=== PATIENT | female | born 1975 | race Caucasian/White ===

== ENCOUNTER 2024-01-12 13:54 | Inpatient (IN) | payer OTHER, SELFPAY ==
--- NOTE | ~2024-01-12 | CT_ITS ---
EXAMINATION: CT ABDOMEN AND PELVIS WITHOUT CONTRAST CLINICAL INFORMATION: Right flank pain. COMPARISON: None available. TECHNIQUE: Multidetector volumetric imaging was performed from the superior aspect of the liver through the pubic symphysis. Sagittal and coronal reformatted images were obtained on the technologist's workstation. This CT examination was performed using dose optimization techniques as appropriate, variously including the following: *Automated exposure control *Adjustment of mA and/or kV according to patient size (this includes techniques or standardized protocols for targeted exams where dose is matched to indication/reason for exam; i.e. extremities or head) *Use of iterative reconstruction technique DLP: 861 mGy-cm FINDINGS: LUNG BASES: The visualized lung bases are unremarkable. LIVER, GALLBLADDER, AND BILIARY TREE: Liver is borderline enlarged, measuring 20.5 cm craniocaudal. Normal contour. No focal lesions. Normal attenuation. There is a 2 cm peripherally calcified gallstone in the gallbladder with with minimal adjacent pericholecystic fat stranding. No wall thickening. No biliary ductal dilatation. PANCREAS: Unremarkable. SPLEEN: Unremarkable. ADRENAL GLANDS: Unremarkable. KIDNEYS AND URETERS: The kidneys are normal in size, shape, and attenuation. No hydronephrosis, hydroureter, or calculi seen. No perinephric stranding. BLADDER: Unremarkable. GASTROINTESTINAL TRACT: Stomach, small bowel, and colon are normal in caliber. No bowel wall thickening or surrounding inflammatory changes. Appendix is normal. No intraperitoneal free fluid or free air. ABDOMINAL WALL: No significant hernia is appreciated. LYMPH NODES: Normal. VASCULAR: Unremarkable. PELVIC VISCERA: Retroverted uterus. No adnexal lesions. OSSEOUS STRUCTURES: Mild facet arthropathy in the lower lumbar spine. No fracture or malalignment. Mild degenerative spondylosis in the lower thoracic spine. Mild osteoarthritis in both hips. CT/CT abdomen pelvis wo IV con IMPRESSION: 1. Cholelithiasis with mild pericholecystic fat stranding but with no apparent wall thickening. These findings are indeterminant for cholecystitis, particularly in the absence of more supportive findings of cholecystitis on the recent ultrasound. If there is concern for cholecystitis, consider correlation with a HIDA scan. 2. No evidence of nephrolithiasis or obstructive uropathy. 3. Borderline hepatomegaly. Fleischner guidelines were followed. Electronically signed by: Vincent Blake MD 01/12/2024 06:55 PM [facility]
--- NOTE | ~2024-01-12 | US_ITS ---
EXAMINATION: US ABDOMEN LIMITED CLINICAL INFORMATION: Right upper quadrant pain. COMPARISON: None available. TECHNIQUE: Real-time imaging of the right upper quadrant abdominal viscera. FINDINGS: PANCREAS: Normal. LIVER: Normal. The liver is normal in size and echotexture, noting a Winter's configuration. The liver contour is normal. No focal hepatic lesion. There is no intrahepatic biliary duct dilatation. GALLBLADDER: A 26 x 22 mm shadowing calculus is evident within the gallbladder. No wall thickening, Sharp's sign or pericholecystic fluid is evident. COMMON BILE DUCT: Normal in caliber measuring 0.5 cm in diameter. RIGHT KIDNEY: Normal. No hydronephrosis. There is a 5 mm echogenic focus in the upper pole, without definite shadowing.. The kidney measures 11.5 cm in maximum dimension. FREE FLUID: None. US/US abdomen limited IMPRESSION: 1. Cholelithiasis. 2. Question right renal upper pole calculus versus sonographic interface. If there is clinical concern of nephrolithiasis, this would be better assessed by a noncontrast CT. Electronically signed by: Felipe Zamudio MD 01/12/2024 04:15 PM EST
--- NOTE | 2024-01-12 13:57 | ECG_ITS ---
Test Reason : chest pain Blood Pressure : / mmHG Vent. Rate : 063 BPM Atrial Rate : 063 BPM P-R Int : 142 ms QRS Dur : 074 ms QT Int : 404 ms P-R-T Axes : 048 083 048 degrees QTc Int : 413 ms Normal sinus rhythm Normal ECG No previous ECGs available Referred By: Ellyn Poole Electronically Signed By:MITCH ENGLE MD
--- NOTE | 2024-01-12 14:08 | ED.GENADULT ---
HPI - General Adult General Chief complaint: Abdominal Pain Stated complaint: r flank pain-cp Time Seen by Provider: 01/12/24 14:28 Source: patient and RN notes reviewed Mode of arrival: ambulatory Limitations: no limitations History of Present Illness ED Provider: Mariza Akins PA-C HPI narrative: This is a 48-year-old female, with no known medical problems, who presents emergency department with complaints of right flank pain. Patient states that over the last 10 years, she has had a known gallstone. She states that the surgeon who previously saw her did not want to operate as her labs were always coming back normal. She states that her pain has been waxing and waning however reports over the last several weeks this pain has worsened. She states that today she felt chest pressure, which radiated into her mid back. She also states that when she was at work today when she felt the chest pressure and she felt some pain down into her right arm. She states that several days ago she also rolled in bed and felt a popping sensation in right flank. She denies any fevers, chills, shortness for breath, palpitations, abdominal pain, vomiting. She does endorse nausea. She also endorses constipation, which she has a history of. No urinary symptoms. No other complaints or concerns MD complaint: Upper abdominal pain, right flank pain Onset (ago): year(s) Radiation: back Severity: moderate Quality: aching Pain Consistency: constant Associated symptoms: denies other symptoms Treatments prior to arrival: none Related Data Home Medications ?Medication ?Instructions ?Recorded ?Confirmed [id number] 250 2 tab PO DAILY PRN Migraine 01/12/24 01/12/24 mg-250 mg-65 mg tablet (Excedrin Headache Migraine) calcium 333 mg-vit D3 133 1 tab PO DAILY 01/12/24 01/12/24 unit-magnesium 133 mg-zinc 5 mg tablet (Brandon Mag Zinc Plus D3) famotidine 20 mg tablet 20 mg PO DAILY 01/12/24 01/12/24 [id number]-JS-tllcygbnxqgvw-guaifen 2 tab PO DAILY PRN Pain/Headache 01/12/24 01/12/24 5 mg-10 mg-325 mg-200 mg tablet (Tylenol Cold and Flu Severe) Previous Rx's ?Medication ?Instructions ?Recorded docusate sodium 100 mg capsule 100 mg PO BID #30 caps 01/14/24 (Colace) oxycodone 5 mg tablet 5 mg PO Q4H PRN pain (scale score 01/14/24 7-10) #24 tabs Allergies Allergy/AdvReac Type Severity Reaction Status Date / Time Penicillins Allergy Rash Verified 01/12/24 14:14 Review of Systems Review of Systems: Yes all other systems are reviewed and are negative Constitutional: Constitutional: Reports as per [facility] Past Medical History Medical History Allergies Heartburn Surgical History Hx of esophagogastroduodenoscopy Social History Social History Household Members: Family Housing: House Do you presently have visiting nurse or other home services: No Alcohol intake: current Alcohol intake frequency: holidays/special occasions only Patient Tobacco Use Status: Current everyday Tobacco user Tobacco use type: Cigarette Cigarettes Per Day: 10 service: No Physical Exam ED Vital Signs: Vital Signs - 24 hr 01/12/24 14:09 01/12/24 16:39 01/12/24 19:16 Temperature 98.0 F 98.0 F 98.4 F Pulse Rate 70 59 84 Respiratory Rate 18 16 16 Blood Pressure 136/69 123/68 136/80 Pulse Oximetry 98 100 96 Oxygen Delivery Method Room Air Room Air Room Air BMI result Body Mass Index 33.9 Const General: cooperative, comfortable and no acute distress Orientation/consciousness: patient oriented x3 Limitations: no limitations [facility] Head: Yes normal to inspection, Yes normocephalic and Yes atraumatic Ears: hearing grossly normal bilaterally General nose exam: Normal external nose present Face and sinus: Yes normal facial exam Mouth: Normal oral and palatal mucosa present, oropharynx normal and moist mucous membranes Throat: Yes posterior oropharynx normal Eyes General: appearance normal, both eyes and all related structures Eyelids: Yes eyelids normal Conjunctivae: conjunctivae normal Sclerae: sclerae normal Pupils: Equal, round and reactive pupils present EOM: EOMs intact bilaterally Neck Neck: Yes normal visual inspection, Yes full ROM and Yes no lymphadenopathy Lymphatic: no lymphadenopathy noted Chest Chest palpation & inspection: normal inspection of the chest Resp Effort & Inspection: normal respiratory effort and able to speak in complete sentences Auscultation: clear to auscultation bilaterally, no crackles, no rales, no rhonchi and no wheezes Cardio Rate: regular rate Rhythm: regular rhythm Heart sounds: S1 normal heart sound present and S2 normal heart sound present GI Other: Abdomen is soft however with diffuse tenderness throughout, more pronounced in the epigastrium and right upper quadrant. Negative Sharp's sign. Inspection: Yes normal to inspection Back/Spine/Pelvis Other: Positive CVA tenderness on the right Skin General skin exam: no rashes or lesions noted Trauma: no lacerations or abrasions Wounds: no wounds Neuro General: patient oriented x3 and moves all extremities Cranial nerves: Yes Equal, round and reactive pupils present Extrem General: Yes normal to inspection Right upper extremity: normal to inspection Left upper extremity: normal to inspection Right lower extremity: normal to inspection Left lower extremity: normal to inspection Course Course Course Narrative: This is a rapid medical exam performed by Mónica Poole NP: Additional HPI, ROS, PE not included below will be deferred to primary provider. Patient is a 48-year-old female presenting to the ED with complaint of pain radiating from RUQ around to back and chest. Known gallstone. States this is more chest/back pain than has had before with prior episodes of biliary colic. Also has hiatal hernia. Plan: labs, US, EKG Reevaluation(s) Reevaluation #1: No leukocytosis, stable H&H, chemistry within normal limits, no electrolyte derangement, troponin x2 negative. Lipase and amylase within normal limits. Urine does not appear to be infected. Abdominal ultrasound revealing cholelithiasis, and question right renal upper pole calculus versus sonographic interface. Given this finding, a CT scan of her abdomen and pelvis was ordered. This is pending at this time. Time: 18:32 Reevaluation #2: CT scan returns, revealing cholelithiasis with mild pericholecystic fat stranding but with no apparent wall thickening. Indeterminate for cholecystitis. I discussed case with my attending physician, Dr. Bello who recommends reaching out to Dr. Paige, who reviewed case, and will admit to their surgical service. Time: 19:40 Medications Administered Discontinued Medications Generic Name Dose Route Start Last Admin Trade Name Freq PRN Reason Stop Dose Admin Ceftriaxone Sodium 1 gm 01/12/24 19:41 01/12/24 20:03 Ceftriaxone Sodium 1 Gm Vial IVPUSH 01/12/24 19:42 1 gm ONCE ONE Administration Famotidine 20 mg 01/14/24 09:00 01/14/24 07:23 Famotidine 20 Mg Tablet PO 20 mg DAILY STEPHANIE Administration Fentanyl 50 mcg 01/13/24 17:23 01/13/24 17:37 Fentanyl Citrate/Pf 100 Mcg/2 Ml Vial IVPUSH 01/13/24 23:26 50 mcg Q5M PRN Administration Pain, Severe (Pain Scale 7-10) Dextrose/Lactated Ringer's 1,000 mls @ 125 mls/hr 01/12/24 19:45 01/13/24 18:11 D5lr IVCONT Infused .Q8H STEPHANIE Infusion Acetaminophen 1,000 mg in 100 mls @ 400 mls/hr 01/12/24 20:00 01/13/24 16:02 Ofirmev IV 01/13/24 14:14 Infused Q6H STEPHANIE Infusion Lactated Ringer's 1,000 mls @ 100 mls/hr 01/13/24 15:09 01/14/24 04:13 Lr IVCONT 100 mls/hr .Q10H STEPHANIE Administration Clindamycin Phosphate 900 mg in 50 mls @ 50 mls/hr 01/13/24 15:09 01/13/24 17:49 Cleocin IV 01/13/24 16:08 Not Given PREOP ONE Lactated Ringer's 1,000 mls @ 100 mls/hr 01/13/24 17:30 01/14/24 04:15 Lr IVCONT Infused .Q10H STEPHANIE Infusion Acetaminophen 1,000 mg in 100 mls @ 400 mls/hr 01/13/24 20:00 01/14/24 07:27 Ofirmev IV 01/14/24 14:14 Not Given Q6H STEPHANIE Ketorolac Tromethamine 30 mg 01/12/24 17:01 01/12/24 17:09 Ketorolac Tromethamine 30 Mg/Ml Vial IVPUSH 01/12/24 17:02 30 mg ONCE ONE Administration Oxycodone HCl 5 mg 01/13/24 17:59 01/14/24 08:21 Oxycodone Hcl Immed Release 5 Mg Tablet PO 5 mg Q6H PRN Administration Pain, Moderate(Pain Scale 4-6) Sodium Chloride 3 ml 01/13/24 00:00 01/14/24 07:23 0.9 % Sodium Chloride Flush 3 Ml Syringe [facility]FLUSH [facility] Decision Making Medical Decision Making [facility] Narrative: This is a 48-year-old female who presents emergency department with complaints of right upper quadrant, epigastric pain, and right flank pain. She has had a known gallstone for many years, which she has been told this does not require surgery given normal labs. She states that over the last several days the pain has worsened. She also reports that today she developed chest pressure-like pain. On arrival, vital signs within normal limits. She is speaking full sentences under no acute distress. Abdomen is soft, with mild tenderness palpation in the epigastrium and right upper quadrant. She also has right flank pain and right CVA tenderness. No urinary symptoms. She was a smoker, she also has a Nexplanon. She is not hypoxic, denies any pleuritic pain. No recent travel, surgery or hospitalizations. No history of blood clots. No history of cancer. Differential diagnoses include biliary colic, cholangitis, cholecystitis, nephrolithiasis, ACS. Plan: Labs, EKG, chest x-ray, ultrasound, CT abdomen and pelvis Differential Diagnosis Differential Diagnoses: The differential diagnosis associated with the presentation includes See above Admission/Observation Consideration of admission/observation: Escalation of care including admission/observation considered Lab Data [facility] Lab Attestation statement: I reviewed the patient's lab results. see course 01/12/24 14:28 01/12/24 14:28 Labs: Lab Results 01/12/24 01/12/24 01/12/24 Range/Units 14:28 16:55 17:09 WBC 9.7 (4.8-10.8) X10*3/uL RBC 4.33 (4.20-5.50) X10*6/uL Hgb 13.3 (12.0-16.0) g/dl Hct 39.9 (37.0-47.0) % MCV 92.1 (80.0-98.0) fL MCH 30.7 (27.0-33.0) pg MCHC 33.3 (31.0-35.0) g/dl RDW 11.7 (11.0-16.0) % Plt Count 288 (160-400) X10*3/uL MPV 10.1 (9.4-12.3) fL Immature Gran % (Auto) 0.4 (0.0-0.4) % Neut % (Auto) 65.6 (45-73) % Lymph % (Auto) 28.3 (20-40) % [place] % (Auto) 3.7 (2-11) % Eos % (Auto) 1.2 (0-4) % Baso % (Auto) 0.8 (0-2) % Lymph # (Auto) 2.7 (1.2-4.9) X10*3/uL [place] # (Auto) 0.4 (0.1-1.2) X10*3/uL Eos # (Auto) 0.1 (0.0-0.4) X10*3/uL Baso # (Auto) 0.1 (0.0-0.2) X10*3/uL Abs Immat Gran (auto) 0.04 H (0.00-0.03) X10*3/uL Absolute Neuts (auto) 6.3 (2.0-8.3) x10*3/uL Absolute Nucleated RBC 0.000 (0.0-0.012) X10*3/uL Nucleated RBC % (auto) 0.0 (0.0-0.2) /100WBC PT 11.9 (10.9-12.4) SEC INR 1.0 (0.9-1.1) D-Dimer High Sensitivty < 150 NG/ML Sodium 140 (135-145) mmol/L Potassium 4.0 (3.3-5.1) mmol/L Chloride 106 (96-108) mmol/L Carbon Dioxide 28 (22-29) mmol/L Anion Gap 10 L (12-20) BUN 11 (9-16) mg/dL Creatinine 0.71 (0.5-1.4) mg/dL Estim Creat Clear Calc 127.2 Estimated GFR > 60 Random Glucose 100 (60-115) mg/dL Calcium 9.3 (8.4-10.2) mg/dL Total Bilirubin 0.3 (0.0-1.0) mg/dL AST 17 (5-31) U/L ALT 18 (0-31) U/L Alkaline Phosphatase 62 (39-117) U/L Troponin I High Sens < 2.7 < 2.7 (<3.5-17.0) ng/L Total Protein 7.1 (6.5-8.0) g/dL Albumin 4.4 (3.5-5.0) g/dL Amylase 47 (28-100) U/L Lipase 11 (8-78) U/L Beta HCG, Quant < 2 mIU/mL Urine Color Yellow Urine Appearance Clear Urine pH 5.5 (5.0-9.0) Ur Specific [place] <= 1.005 (1.005-1.025) Urine Protein Negative (Neg-Trace) mg/dL Urine Glucose (UA) Negative (Negative) mg/dL Urine Ketones Negative (Negative) mg/dL Urine Blood Negative (Negative) Urine Nitrite Negative (Negative) Ur Leukocyte Esterase Negative (Negative) Radiology Impression Discussion of test interpretation with radiology: I have reviewed the radiologist's reading. External Record Review External record reviewed: Inpatient record, Office record, Outpatient record, Prior outpatient labs, Prior outpatient radiology, Primary care record and Outside ED record Discharge Plan Discharge Clinical Impression: Cholelithiasis Patient Disposition: Admitted As Inpatient Interventions: Admission Worksheet (ED) Last Done: 01/12/24 21:44 Discharge Date/Time: 01/12/24 22:13
[2024-01-12 14:09] VITALS: BP 136/69; PULSE 70; RESP 18; TEMP 36.7; O2SAT 98; BMI 33.9
[2024-01-12 14:32] LABS: MANUAL DIFF FLAG NO
[2024-01-12 14:38] LABS: Basophils Absolute Auto 0.1 X10*3/uL (0.0-0.2); Basophils Percent Auto 0.8 % (0-2); Eosinophils Absolute Auto 0.1 X10*3/uL (0.0-0.4); Eosinophils Percent Auto 1.2 % (0-4); Hematocrit 39.9 % (37.0-47.0); Hemoglobin 13.3 g/dl (12.0-16.0); Imm Gran Abs Auto 0.04 X10*3/uL (0.00-0.03); Imm Gran Pct Auto 0.4 % (0.0-0.4); Lymphocytes Absolute Auto 2.7 X10*3/uL (1.2-4.9); Lymphocytes Percent Auto 28.3 % (20-40); Mean Corpuscular HGB Conc 33.3 g/dl (31.0-35.0); Mean Corpuscular Hemoglobin 30.7 pg (27.0-33.0); Mean Corpuscular Volume 92.1 fL (80.0-98.0); Mean Platelet Volume 10.1 fL (9.4-12.3); Monocytes Absolute Auto 0.4 X10*3/uL (0.1-1.2); Monocytes Percent Auto 3.7 % (2-11); Neutrophils Absolute Auto 6.3 x10*3/uL (2.0-8.3); Neutrophils Percent Auto 65.6 % (45-73); Platelet Count 288 X10*3/uL (160-400); Red Blood Count 4.33 X10*6/uL (4.20-5.50); Red Cell Distribution Width 11.7 % (11.0-16.0); White Blood Count 9.7 X10*3/uL (4.8-10.8)
[2024-01-12 14:42] LABS: Prothrombin Time 11.9 SEC (10.9-12.4)
[2024-01-12 14:49] LABS: Amylase 47 U/L (28-100)
[2024-01-12 14:50] LABS: Alanine Aminotransferase 18 U/L (0-31); Albumin Level 4.4 g/dL (3.5-5.0); Alkaline Phosphatase 62 U/L (39-117); Anion Gap 10 (12-20); Aspartate Amino Transferase 17 U/L (5-31); Bilirubin Total 0.3 mg/dL (0.0-1.0); Blood Urea Nitrogen 11 mg/dL (9-16); Calcium 9.3 mg/dL (8.4-10.2); Carbon Dioxide 28 mmol/L (22-29); Chloride 106 mmol/L (96-108); Creatinine Clr Calc Pharmacy 127.2; Estimated Glomerular Filt Rate > 60; Glucose Random 100 mg/dL (60-115); Lipase 11 U/L (8-78); Sodium 140 mmol/L (135-145); Total Protein 7.1 g/dL (6.5-8.0)
[2024-01-12 14:58] LABS: Troponin-I High Sensitivity < 2.7 ng/L (<3.5-17.0)
[2024-01-12 14:59] LABS: HCG Quantitative < 2 mIU/mL
--- NOTE | 2024-01-12 15:23 | PC.NURSE ---
ultrasound being completed at this time. plan of care ongoing.
[2024-01-12 16:39] VITALS: BP 123/68; PULSE 59; RESP 16; TEMP 36.7; O2SAT 100
[2024-01-12 17:01] LABS: Appearance Urine Clear; Color Urine Yellow; Glucose Urine UA Negative (Negative); Leukocyte Esterase Urine Negative (Negative); Nitrite Urine Negative (Negative); PH 5.5 (5.0-9.0); Specific Gravity - Urine <= 1.005 (1.005-1.025); Urine Blood Negative (Negative); Urine Ketones Negative (Negative); Urine Protein Negative (Neg-Trace)
[2024-01-12] MEDS: Ketorolac Tromethamine 30 MG/ML VIAL IVPUSH (17:09)
--- NOTE | 2024-01-12 17:14 | PC.NURSE ---
vss and up to date at this time. pt verbalizing 7/10 pain in RUQ. no episodes of any n/v. 20gIV placed in the left AC - labs obtained/sent to lab. medication administered per provider order. effectiveness pending. pt waiting for CT to be completed at this time. on RA w/o difficulty - no sob/wob noted. respirations even/unlabored. plan of care ongoing. call ramirez placed within reach.
--- NOTE | 2024-01-12 17:17 | PC.NURSE ---
pt to CT at this time.
[2024-01-12 17:39] LABS: Troponin-I High Sensitivity < 2.7 ng/L (<3.5-17.0)
[2024-01-12 17:42] LABS: D Dimer High Sensitivity < 150 NG/ML
--- NOTE | 2024-01-12 19:15 | PC.NURSE ---
provider bedside/speaking w/ pt in regards to CT results at this time. pt aware of plan moving forward. otherwise vss and up to date. respirations remain even/unlabored. plan of care ongoing. call ramirez placed within reach.
[2024-01-12 19:16] VITALS: BP 136/80; PULSE 84; RESP 16; TEMP 36.9; O2SAT 96
[2024-01-12] MEDS: Dextrose 5 % and Lactated Ring 1,000 ML 125 ML IVCONT (20:00)
[2024-01-12] MEDS: Acetaminophen 1,000 MG/100 ML PIGGYBACK 400 MG IV (20:00)
[2024-01-12] MEDS: cefTRIAXone sodium 1 GM VIAL IVPUSH (20:03)
--- NOTE | 2024-01-12 20:26 | PHA.MEDREC ---
Addendum entered by Bo Winter RPh 01/12/24 20:40: [facility] rec reviewed Original Note: Pharmacy Consult ? Medication Reconciliation Pharmacy has completed the medication reconciliation. Patient confirmed she is taking OTC medication right now. She confirmed Famotidine 20mg tabs once daily, a Calcium 100mg-Magnesium 400mg-Zinc 15mg-Vitamin D15 mcg (600un) tab once daily, a Tylenol Cold and Flu Sever tab 2 daily as needed for pain or Migraines and Excedrin Migraine 2 daily as needed for Migraines. She confirmed she took the Tylenol Cold and Flu and the Calcium 100mg-Magnesium 400mg-Zinc 15mg-Vitamin D15 mcg (600un) tabs today, the Famotidine 20mg tab yesterday and the Excedrin Migraine last Wednesday.
[2024-01-12 22:17] VITALS: BP 124/68; PULSE 67; RESP 18; TEMP 36.2; O2SAT 97
[2024-01-13] VITALS (11 sets, daily range): BP systolic 102–143; BP diastolic 54–74; PULSE 52–64; RESP 15–22; TEMP 36.2–36.8; O2SAT 95–99
[2024-01-13] MEDS: Acetaminophen 1,000 MG/100 ML PIGGYBACK 400 MG IV ×4 (01:53→19:48)
[2024-01-13] MEDS: Dextrose 5 % and Lactated Ring 1,000 ML 125 ML IVCONT ×2 (03:54→12:15)
--- NOTE | 2024-01-13 08:02 | PM.HPGS ---
History of Present Illness History of Present Illness Date of Service: 01/13/24 Chief complaint: Acute cholecystitis, cholelithiasis Narrative: Leigh Ann Mock is a 48 year old female patient presenting with complaints of abdominal pain in the right upper quadrant radiating into the chest and back. She has had a prolonged history of intermittent abdominal pain in the right upper quadrant the feels the symptoms have worsened over the past several weeks. 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 She reports nausea without vomiting. She has persistent intermittent diarrhea and constipation which is normal for her. She has a prior history of kidney biopsies but denies any other abdominal surgeries. She denies fever or chills. Workup in the emergency department revealed normal WBC and liver function tests. CT and ultrasound confirmed cholelithiasis. There was a sonographic Sharp sign. Review of Systems Review of Systems: Yes all other systems are reviewed and are negative Constitutional: Constitutional: Denies chills, Denies fever(s), Denies headache(s), Denies poor appetite and Denies weakness ENT: Denies headache(s) Cardiovascular: Cardiovascular: Denies chest pain, Denies irregular heart rhythm, Denies palpitations and Denies dyspnea Respiratory: Respiratory: Denies cough, Denies excessive phlegm production and Denies dyspnea Gastrointestinal: Gastrointestinal: Denies abdominal pain, Denies bloating, Denies change in bowel habits, Denies constipation, Denies heartburn, Denies diarrhea, Denies nausea and Denies vomiting Genitourinary: Genitourinary: Denies urinary frequency Musculoskeletal: Musculoskeletal: Denies back pain, Denies muscle weakness and Denies numbness Integumentary/Breasts: Skin/Breast: Denies changing lesions and Denies unusual bruising Neurologic: Denies headache(s), Denies numbness, Denies paresthesias and Denies weakness Psychiatric: Psychiatric: Denies anxiety and Denies depression Endocrine: Endocrine: Denies palpitations Hematologic/Lymphatic: Hematologic/Lymphatic: Denies lymphadenopathy PMFSH Social History Social History Household Members: Family Housing: House Do you presently have visiting nurse or other home services: No Alcohol intake: current Alcohol intake frequency: holidays/special occasions only Patient Tobacco Use Status: Current everyday Tobacco user Tobacco use type: Cigarette Cigarettes Per Day: 8 Smoked in Last 30 Days: Yes Patient Interested in Nicotine Replacement: No Use of substances other than those prescribed or required for medical reasons: No Have you been hit, kicked, punched, or otherwise hurt by someone within the past year? If so, by whom?: No Do you feel safe in your current relationship?: Yes Is there a partner from a previous relationship who is making you feel unsafe now?: No Are you made to feel afraid or neglected: No Advance Directives: No Advance Directives Information Provided: Yes Do you have a plan to hurt others: No Plan Recently lost weight without trying: No Eating poorly because of decreased appetite: No Nutrition Risks: No Nutritional Risk Patient : No : No Poor oral hygiene: No Meds Allergies Allergy/AdvReac Type Severity Reaction Status Date / Time Penicillins Allergy Rash Verified 01/12/24 14:14 Active Medications: Current Medications Calcium Carbonate (Calcium Carbonate 750 Mg Tab.Chew) 750 mg PO Q4H PRN PRN Reason: Heartburn Dextrose/Lactated Ringer's (D5lr) 1,000 mls @ 125 mls/hr IVCONT .Q8H [facility] Last Admin: 01/13/24 03:54 Dose: 125 mls/hr Acetaminophen (Ofirmev) 1,000 mg in 100 mls @ 400 mls/hr IV Q6H [facility] Stop: 01/13/24 14:14 Last Admin: 01/13/24 08:01 Dose: 400 mls/hr Magnesium Hydroxide (Milk Of Magnesia 30 Ml Oral.Susp) 30 ml PO DAILY PRN PRN Reason: Constipation Melatonin (Melatonin 3 Mg Tablet) 6 mg PO BEDTIME PRN PRN Reason: Insomnia Morphine Sulfate (Morphine Sulfate 4 Mg/Ml Cartridge) 4 mg IVPUSH Q4H PRN; Protocol PRN Reason: Pain, Severe (Pain Scale 7-10) Ondansetron HCl (Ondansetron Hcl 4 Mg/2 Ml Vial) 4 mg IVPUSH Q8H PRN PRN Reason: Nausea and Vomiting Oxycodone HCl (Oxycodone Hcl Immed Release 5 Mg Tablet) 5 mg PO Q6H PRN PRN Reason: Pain, Moderate(Pain Scale 4-6) Sodium Chloride (0.9 % Sodium Chloride Flush 3 Ml Syringe) 3 ml IVFLUSH QSHIFT [facility] Last Admin: 01/13/24 07:55 Dose: Not Given Home Medications ?Medication ?Instructions ?Recorded ?Confirmed ?Last Taken ?Type otvotcm-tauawxnmkshqd-syreoftv 250 2 tab PO DAILY PRN Migraine 01/12/24 01/12/24 01/07/24 History mg-250 mg-65 mg tablet (Excedrin Headache Migraine) calcium 333 mg-vit D3 133 1 tab PO DAILY 01/12/24 01/12/24 01/12/24 History unit-magnesium 133 mg-zinc 5 mg tablet (Brandon Mag Zinc Plus D3) famotidine 20 mg tablet 20 mg PO DAILY 01/12/24 01/12/24 01/11/24 History ijielqczthllz-LG-ovyyaetjuysjk-guaifen 2 tab PO DAILY PRN Pain/Headache 01/12/24 01/12/24 01/12/24 History 5 mg-10 mg-325 mg-200 mg tablet (Tylenol Cold and Flu Severe) Physical Exam Vital Signs: Vital Signs: Last Vital Signs Temp 97.4 F 01/13/24 07:26 Pulse 59 01/13/24 07:26 Resp 16 01/13/24 07:26 BP 102/54 L 01/13/24 07:26 Pulse Ox 96 01/13/24 07:26 O2 Del Method Room Air 01/13/24 07:26 BMI result Body Mass Index 33.9 Const: General: cooperative and no acute distress Nutritional Appearance: well nourished Orientation/consciousness: patient oriented x3 Limitations: no limitations HEENT: Head: Yes normocephalic and Yes atraumatic Ears: hearing grossly normal bilaterally Resp: Effort & Inspection: normal respiratory effort, no audible wheezes, no cough and no respiratory distress Cardio: Jugular venous distension: no JVD GI: Inspection: Yes normal to inspection Palpation (GI): Soft to palpation, Tenderness to palpation present (GI) in the RUQ; Sharp's sign negative, no guarding, not rigid and No hepatosplenomegaly present Percussion: Yes normal to percussion Auscultation: normal bowel sounds Rectal Exam - Female: deferred Skin: Other: Warm, dry, no rash Neuro: General: patient oriented x3 Extrem: General: Yes no clubbing, cyanosis or edema Results Results Labs: Short CBC 01/12/24 Range/Units 14:28 WBC 9.7 (4.8-10.8) X10*3/uL Hgb 13.3 (12.0-16.0) g/dl Hct 39.9 (37.0-47.0) % Plt Count 288 (160-400) X10*3/uL BMP 01/12/24 14:28 Sodium 140 Potassium 4.0 Chloride 106 Carbon Dioxide 28 BUN 11 Creatinine 0.71 Calcium 9.3 Liver Function 01/12/24 Range/Units 14:28 Total Bilirubin 0.3 (0.0-1.0) mg/dL AST 17 (5-31) U/L ALT 18 (0-31) U/L Alkaline Phosphatase 62 (39-117) U/L Albumin 4.4 (3.5-5.0) g/dL Urine 01/12/24 Range/Units 16:55 Urine Color Yellow Urine Appearance Clear Urine pH 5.5 (5.0-9.0) Ur Specific [place] <= 1.005 (1.005-1.025) Urine Protein Negative (Neg-Trace) mg/dL Urine Glucose (UA) Negative (Negative) mg/dL Assessment and Plan (1) Acute cholecystitis due to biliary calculus: Status: Acute Plan 48-year-old female patient presenting with complaints of right upper quadrant abdominal pain which is increasing in severity over the past several weeks. Patient presented to the emergency department for further evaluation and was noted to have a large calcified gallstone within the gallbladder. Ultrasound confirmed gallstones as well as a sonographic Sharp sign. Laboratories are normal. This morning she is improved but wishes to proceed with surgery. I reviewed the procedure, risks, and alternatives and she consents to a laparoscopic or possible open cholecystectomy. She will be added onto the operative schedule for today. Quality Stroke Does the patient have a stroke diagnosis?: No VTE Prior VTE?: No VTE Risk Level:: Surgical - low VTE Device Contraindication: N/A - Device Ordered VTE Drug Contraindication: Treatment Not Indicated Procedures Date of Service Date of Service: 01/13/24
--- NOTE | 2024-01-13 08:54 | MHC.CM.PN ---
Patient lives in a home w/ . Functionally independent. Denies use of DME or services. No current PCP. Upcoming appt w/ Jagdish Bucio CNP to establish care. Reports she has an HCP naming her mother as HCA. Copy requested. DP: Goal is home self care. Family transport. CM will continue to follow.
--- NOTE | 2024-01-13 15:58 | P.CONAN_ITS ---
HPI - Anesthesia Eval Consult details Narrative: 48 yo female patient for Laparoscopic Cholecystectomy PMFSH Active Problems Active Problems: All Active Problems (Updated 01/13/24 @ 14:37 by Marley Pierce RN) Acute cholecystitis due to biliary calculus (Acute) Cholelithiasis (Acute) Increased BMI. Denies JENNIFER Past Medical History Medical History Allergies Heartburn Family History Family history of problems with anesthesia: No Surgical History Surgical History Hx of esophagogastroduodenoscopy History of Problems with Anesthesia: No Social History Social History Household Members: Family Housing: House Do you presently have visiting nurse or other home services: No Alcohol intake: current Alcohol intake frequency: holidays/special occasions only Patient Tobacco Use Status: Current everyday Tobacco user Tobacco use type: Cigarette Cigarettes Per Day: 10 Smoked in Last 30 Days: Yes Patient Interested in Nicotine Replacement: No Use of substances other than those prescribed or required for medical reasons: No Currently Displaying Signs/Symptoms of Drug Intoxication Withdrawal: No Have you been hit, kicked, punched, or otherwise hurt by someone within the past year? If so, by whom?: No Do you feel safe in your current relationship?: Yes Is there a partner from a previous relationship who is making you feel unsafe now?: No Are you made to feel afraid or neglected: No Are you DNR?: No Advance Directives: No Advance Directives Information Provided: Yes Do you have a plan to hurt others: No Plan Recently lost weight without trying: Unsure Eating poorly because of decreased appetite: No Nutrition Risks: No Nutritional Risk Patient : No : No Poor oral hygiene: No service: No Meds Allergies Allergy/AdvReac Type Severity Reaction Status Date / Time Penicillins Allergy Rash Verified 01/12/24 14:14 Active Medications: Current Medications Lactated Ringer's (Lr) 1,000 mls @ 100 mls/hr IVCONT .Q10H [facility] Clindamycin Phosphate (Cleocin) 900 mg in 50 mls @ 50 mls/hr IV PREOP ONE Stop: 01/13/24 16:08 Morphine Sulfate (Morphine Sulfate 4 Mg/Ml Cartridge) 4 mg IVPUSH Q4H PRN; Protocol PRN Reason: Pain, Severe (Pain Scale 7-10) Ondansetron HCl (Ondansetron Hcl 4 Mg/2 Ml Vial) 4 mg IVPUSH Q8H PRN PRN Reason: Nausea and Vomiting Sodium Chloride (0.9 % Sodium Chloride Flush 3 Ml Syringe) 3 ml IVFLUSH QSHIFT [facility] Last Admin: 01/13/24 07:55 Dose: Not Given Home Medications ?Medication ?Instructions ?Recorded ?Confirmed ?Last Taken ?Type tmbytuz-exoumebzoetwr-zporyuyy 250 2 tab PO DAILY PRN Migraine 01/12/24 01/12/24 01/07/24 History mg-250 mg-65 mg tablet (Excedrin Headache Migraine) calcium 333 mg-vit D3 133 1 tab PO DAILY 01/12/24 01/12/24 01/12/24 History unit-magnesium 133 mg-zinc 5 mg tablet (Brandon Mag Zinc Plus D3) famotidine 20 mg tablet 20 mg PO DAILY 01/12/24 01/12/24 01/11/24 History oayffaaouflmr-YH-fepkmkptqnpyy-guaifen 2 tab PO DAILY PRN Pain/Headache 01/12/24 01/12/24 01/12/24 History 5 mg-10 mg-325 mg-200 mg tablet (Tylenol Cold and Flu Severe) Exam Height,Weight and Vital Signs: Height 5 ft 9 in Weight 104.2 kg Last Vital Signs Temp 98.2 F 01/13/24 14:22 Pulse 61 01/13/24 14:22 Resp 15 01/13/24 14:22 BP 121/74 01/13/24 14:22 Pulse Ox 97 01/13/24 14:22 O2 Del Method Room Air 01/13/24 14:22 Pertinent Lab Results Pertinent Lab Results: Laboratory Tests 01/12/24 01/12/24 01/12/24 14:28 16:55 17:09 WBC 9.7 RBC 4.33 Hgb 13.3 Hct 39.9 MCV 92.1 MCH 30.7 MCHC 33.3 RDW 11.7 Plt Count 288 MPV 10.1 Immature Gran % (Auto) 0.4 Neut % (Auto) 65.6 Lymph % (Auto) 28.3 Will % (Auto) 3.7 Eos % (Auto) 1.2 Baso % (Auto) 0.8 Lymph # (Auto) 2.7 Will # (Auto) 0.4 Eos # (Auto) 0.1 Baso # (Auto) 0.1 Abs Immat Gran (auto) 0.04 H Absolute Neuts (auto) 6.3 Absolute Nucleated RBC 0.000 Nucleated RBC % (auto) 0.0 PT 11.9 INR 1.0 D-Dimer High Sensitivty < 150 Sodium 140 Potassium 4.0 Chloride 106 Carbon Dioxide 28 Anion Gap 10 L BUN 11 Creatinine 0.71 Estim Creat Clear Calc 127.2 Estimated GFR > 60 Random Glucose 100 Calcium 9.3 Total Bilirubin 0.3 AST 17 ALT 18 Alkaline Phosphatase 62 Troponin I High Sens < 2.7 < 2.7 Total Protein 7.1 Albumin 4.4 Amylase 47 Lipase 11 Beta HCG, Quant < 2 Urine Color Yellow Urine Appearance Clear Urine pH 5.5 Ur Specific [place] <= 1.005 Urine Protein Negative Urine Glucose (UA) Negative Urine Ketones Negative Urine Blood Negative Urine Nitrite Negative Ur Leukocyte Esterase Negative Airway Mallampati Class: III TM Dist: >3cm (TMJ syndrome ) Neck ROM: Full Loose/Missing/Broken Teeth: No Heart: RRR Lungs: CTAB Assessment and Plan Assessment Anesthesia Assessment: Anesthesia Plan Discussed and Chart Reviewed Final Anesthetic Review Family History of Problems with Anesthesia: No History of Problems with Anesthesia: No NPO: Yes ASA Class: II and Emergency Final Preanesthetic Review: No Changes in Pt Med Stat, Meds/Allgs Chart Reviewed, Consent Obtained/Reviewed and Anes Risks/Benef Reviewed Patient Risk: Low Procedure Risk: Intermediate Assessment/Block/Sedation in SS: Assess/Block/Sedation-SS Anesthetic Plan Anesthetic Plan: GA Disposition: Standard PACU
--- NOTE | 2024-01-13 17:20 | P.OP_ITS ---
Operative Note Operative Note Date of Service: 01/13/24 Narrative: Preoperative diagnosis: Acute cholecystitits, cholelithiasis Postoperative diagnosis: Same Procedure: Laparoscopic cholecystectomy Surgeon: Eben Paige MD Arc Welder: Josh Myers MD Anesthesia: General endotracheal Indications for procedure:48 year old female presenting with complaints of abdominal pain in the RUQ found to have tenderness in the RUQ with a positive Sharp's sign. Workup revealed a large gallstone in the gallbladder. Operative findings: Acute cholecystitis with a large gallbladder. Specimen: gallbladder Estimated blood loss: 2 mls Complications: none Procedure details: Patient was brought to the OR and placed in a supine position. After administering general anesthesia the patient's abdomen was prepped with ChloraPrep and draped in a sterile fashion. A surgical time-out was called the consent confirmed. Patient received preoperative antibiotics and Venodyne boots were in place. Local anesthesia consisting of 0.5% Sensorcaine without epinephrine was infiltrated in a periumbilical region. A 5 mm incision was made above the umbilicus in a transverse fashion. The Veress needle was then inserted while elevating abdominal cavity with towel clips. After positive drop test the abdomen was insufflated to a pressure of 15 mm of mercury. The Veress needle was then removed and a 5 mm trocar inserted. The camera was inserted in the abdomen explored. A 12 mm trocar was then placed in the epigastrium. Two 5 mm trocars placed in the right upper quadrant by the ambulance assistant. The patient was placed in reverse Trendelenburg positioning and rotated to the left. The gallbladder was grasped with the fundus and retracted cephalad by the ambulance assistant. The infundibulum was then grasped and retracted away from the liver bed, also by the ambulance assistant. The Dolphin dissected was then used by the surgeon to dissect the peritoneum off the infundibulum to reveal the junction with the cystic duct. Cystic artery was noted slightly medial and posterior to the cystic duct. After obtaining a critical view the cystic duct was doubly clipped and divided. The cystic artery was then doubly clipped and divided. The gallbladder was then dissected off the liver bed using electrocautery with an L hook. Hemostasis was assured all times using the electrocautery. When the gallbladder is completely dissected off the liver bed was placed in an Endo-Catch bag and brought out through the epigastric incision. The gallbladder was sent to pathology for further examination. The abdomen was then re-examined. The liver bed was irrigated and suctioned dry. No bleeding or bile leak could be identified. CO2 was then evacuated and all trocars removed. Fascia was closed at the epigastric incision using a [id number] 0 Polysorb suture. Skin was closed in all incisions using a subcuticular 4 0 Polysorb suture by both the surgeon and ambulance assistant. Sterile dressings consisting of Steri-Strips, 2 x 2 gauze, and Tegaderm were then applied. The patient tolerated the procedure well. Sponge instrument and needle counts reported as correct. The patient was transferred to PACU in stable condition.
[2024-01-13] MEDS: fentaNYL citrate/PF 100 MCG/2 ML VIAL 50 MCG IVPUSH (17:37)
[2024-01-13] MEDS: Lactated Ringers 1,000 ML 100 ML IVCONT (18:03)
[2024-01-13] MEDS: oxyCODONE HCl Immed Release 5 MG TABLET PO (22:29)
[2024-01-14] MEDS: Acetaminophen 1,000 MG/100 ML PIGGYBACK 400 MG IV (02:28)
[2024-01-14 04:00] VITALS: BP 110/52; PULSE 55; RESP 16; TEMP 36.8; O2SAT 93
[2024-01-14] MEDS: Lactated Ringers 1,000 ML 100 ML IVCONT (04:13)
[2024-01-14] MEDS: Famotidine 20 MG TABLET PO (07:23)
--- NOTE | 2024-01-14 07:47 | P.PNGS_ITS ---
Subjective Subjective Date of Service: 01/14/24 Interval history: Feels well. Reports pain mostly at epigastric port site and some gas pains. OOB and ambulating to bathroom. Tolerating diet. Wants to go home. Physical Exam 2 Vital Signs: Vital Signs: Last Vital Signs Temp 98.3 F 01/14/24 04:00 Pulse 55 01/14/24 04:00 Resp 16 01/14/24 04:00 BP 110/52 L 01/14/24 04:00 Pulse Ox 93 01/14/24 04:00 O2 Del Method Room Air 01/14/24 04:00 O2 Flow Rate 2 01/13/24 17:42 BMI result Body Mass Index 33.9 Const: General: comfortable, no acute distress and alert O rientation/consciousness: patient oriented x3 Resp: Effort & Inspection: normal respiratory effort GI: Inspection: No distended and Yes incision (dressings clean and intact) Palpation (GI): Soft to palpation, Tenderness to palpation present (GI) (mild incisional) and no guarding Skin: General skin exam: no rashes or lesions noted and no jaundice Neuro: General: patient oriented x3 and moves all extremities Objective Data Active Medications Famotidine (Famotidine 20 Mg Tablet) 20 mg PO DAILY [facility] Last Admin: 01/14/24 07:23 Dose: 20 mg Documented By: JINA Lactated Ringer's (Lr) 1,000 mls @ 100 mls/hr IVCONT .Q10H [facility] Last Admin: 01/14/24 04:13 Dose: 100 mls/hr Documented By: FAUSTINO Lactated Ringer's (Lr) 1,000 mls @ 100 mls/hr IVCONT .Q10H [facility] Last Admin: 01/14/24 04:15 Dose: Not Given Documented By: FAUSTINO Non-Admin Reason: IV Running Acetaminophen (Ofirmev) 1,000 mg in 100 mls @ 400 mls/hr IV Q6H [facility] Stop: 01/14/24 14:14 Last Admin: 01/14/24 07:27 Dose: Not Given Documented By: JINA Non-Admin Reason: IV Running Morphine Sulfate (Morphine Sulfate 4 Mg/Ml Cartridge) 4 mg IVPUSH Q4H PRN; Protocol PRN Reason: Pain, Severe (Pain Scale 7-10) Ondansetron HCl (Ondansetron Hcl 4 Mg/2 Ml Vial) 4 mg IVPUSH Q8H PRN PRN Reason: Nausea and Vomiting Oxycodone HCl (Oxycodone Hcl Immed Release 5 Mg Tablet) 5 mg PO Q6H PRN PRN Reason: Pain, Moderate(Pain Scale 4-6) Last Admin: 01/13/24 22:29 Dose: 5 mg Documented By: FAUSTINO Sodium Chloride (0.9 % Sodium Chloride Flush 3 Ml Syringe) 3 ml IVFLUSH [facility] Last Admin: 01/14/24 07:23 Dose: Not Given Documented By: JINA Non-Admin Reason: IV Running Labs 01/12/24 14:28 01/12/24 14:28 Procedures Date of Service Date of Service: 01/14/24 Progress Note: A&P Assessment and plan (1) Acute cholecystitis due to biliary calculus: Status: Acute (2) S/P laparoscopic cholecystectomy: Status: Acute Plan POD #1 s/p lap king. Doing well post op, comfortable. VSS. Abd exam benign with clean and intact dressings, appropriate post op tenderness. Stable for discharge to home today, f/u in office in 1 week. Patient comfortable with plan. Time Spent With Patient Time: Total time managing care of this patient today ____ minutes. Quality Stroke Does the patient have a stroke diagnosis?: No VTE Prior VTE?: No VTE Risk Level:: Surgical - low VTE Device Contraindication: N/A - Device Ordered VTE Drug Contraindication: Treatment Not Indicated
[2024-01-14] MEDS: oxyCODONE HCl Immed Release 5 MG TABLET PO (08:21)
--- NOTE | 2024-01-14 08:23 | MHC.CM.PN ---
Patient medically cleared for dc home self care via private transport.
--- NOTE | 2024-01-14 11:36 | P.DS_ITS ---
DS: Providers Provider Date of Service: 01/14/24 Date of admission: 01/12/24 19:39 Date of discharge: 01/14/24 Primary care physician: Jagdish Bucio CNP Attending physician on admission: Eben Paige Attending physician on discharge: Eben Paige DS: Diagnosis Discharge Diagnosis (1) Acute cholecystitis due to biliary calculus: Status: Resolved (2) S/P laparoscopic cholecystectomy: Status: Acute DS: Summary Hospital Course Hospital Course: HPI AT ADMISSION: Leigh Ann Mock is a 48 year old female patient presenting with complaints of abdominal pain in the right upper quadrant radiating into the chest and back. She has had a prolonged history of intermittent abdominal pain in the right upper quadrant the feels the symptoms have worsened over the past several weeks. 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 She reports nausea without vomiting. She has persistent intermittent diarrhea and constipation which is normal for her. She has a prior history of kidney biopsies but denies any other abdominal surgeries. She denies fever or chills. Workup in the emergency department revealed normal WBC and liver function tests. CT and ultrasound confirmed cholelithiasis. There was a sonographic Sharp sign. HOSPITAL COURSE: The patient was admitted to the surgical service for further t reatment of the acute cholecystitis. She elected to proceed with laparoscopic cholecystectomy, possible open. She was added onto the OR schedule for that day. On 01/13/24, a laparoscopic cholecystectomy was performed by Dr. Paige without complication. The patient tolerated the procedure well. She had an uncomplicated recovery course. On POD #1, she felt well and was tolerating a solid diet without nausea or vomiting, had good pain control and was ambulating without difficulty. She was hemodynamically stable. Her abdomen was benign with appropriate post op tenderness and clean and intact dressings. She felt ready for discharge. She was discharged to home on 01/14/24 in stable condition. She is to follow up in the office in 1 week. Status at Discharge Functional status at discharge: independent ambulation Overall status at discharge: patient is progressing back to baseline Time Attestation Discharge Coordination Time (in mins): 25 Quality: Safe Use of Opioids Does Pt have an Active Cancer Diagnosis on the Problem List?: No Quality: Stroke Does the patient have a stroke diagnosis?: No Physical Exam Vital Signs: Vital Signs: Last Vital Signs Temp 98.3 F 01/14/24 04:00 Pulse 55 01/14/24 04:00 Resp 16 01/14/24 04:00 BP 110/52 L 01/14/24 04:00 Pulse Ox 93 01/14/24 04:00 O2 Del Method Room Air 01/14/24 04:00 O2 Flow Rate 2 01/13/24 17:42 BMI result Body Mass Index 33.9 Const: General: comfortable, no acute distress and alert Orientation/consciousness: patient oriented x3 Resp: Effort & Inspection: normal respiratory effort GI: Other: dressings clean and intact appropriate post op tenderness Palpation (GI): Soft to palpation Skin: General skin exam: no jaundice Neuro: General: patient oriented x3 DS: Data Data Completed and Pending Completed studies during hospitalization [Text1]: 01/13/24 16:59 Surgical [PTH] Routine Gallbladder, cholecystectomy: Chronic cholecystitis; cholelithiasis Procedures Resection of Gallbladder, Percutaneous Endoscopic Approach (01/12/24) Discharge Plan Discharge Anticipated Discharge Date/Time: 01/14/24 07:44 Patient Disposition: Home, Self-Care Discharge Diagnosis: acute cholecystitis s/p lap king Referrals: Eben Paige MD [Physician] - 1 Week Jagdish Bucio CNP [Primary Care Provider] - 1 Week Discharge Medications: New docusate sodium [Colace] 100 mg capsule 100 mg PO BID Qty: 30 0RF Continued famotidine 20 mg Tablet 20 mg PO DAILY Excedrin Migraine 250-250-65 mg Tablet 2 tab PO DAILY PRN (Reason: Migraine Headache) Tylenol Cold and Flu Severe 0-73-214-200 mg Tablet 2 tab PO DAILY PRN (Reason: Pain/Headache) Brandon Mag Zinc Plus D3 333 mg-133 unit -133 mg-5 mg Tablet 1 tab PO DAILY Discharge Orders: Discharge Order (Routine); Ordered 01/14/24 Ordered By: Nieves Peacock Diet: Low fat, low cholesterol Activity on Discharge: No heavy lifting Stand Alone Forms: Patient Portal Discharge page Print Language: Japanese Activity Restrictions/Additional Instructions: If the incision area is tender, you may apply an ice pack for short intervals (No more than 20 minutes on, followed by at least 20 minutes off). Do not apply heat. Do not use creams, lotions, or topical antibiotics. Ok to shower. Remove clear dressings 3 days following your procedure. You have steri strips (small white cloth strips) covering your incision- these will fall off ~1 week. No heavy lifting (>10lbs) or strenuous activity! Take Tylenol Extra-strength 1-2 tabs every 6 hours for the first day, then as needed. Oxycodone every 6-8 hours as needed for pain. Colace 100 mg every day as needed for constipation. Follow up in office with Dr. Paige in 1 week. ([phone]) Call Your Doctor If: -Your temperature exceeds 101.5? F -You experience excessive pain or swelling -You have an unexpected reaction to medication -You have excessive bleeding -You experience continued vomiting/nausea -Your incision begins to separate -Your incision shows signs of infection such as increased redness, swelling, excessive pain, drainage (light blood or clear fluid is normal) or heat Care Plan Goals: Return to baseline health and resume normal activities following recovery period. Health Concerns: acute cholecystitis Plan of Treatment: s/p laparoscopic cholecystectomy f/u in office in 1 week Assessment: Doing well post op. Discharge Date/Time: 01/14/24 09:30
--- NOTE | 2024-01-14 13:45 | HO.POSTANES ---
Post Anesthesia Evaluation Post Anesthesia Evaluation Date of Service: 01/13/24 Vital Signs: Vital Signs Temp Pulse Resp BP Pulse Ox O2 Del Method 01/14/24 04:00 98.3 F 55 16 110/52 L 93 Room Air Anesthesia: General Endotracheal-GETA Mental Status: Awake Pain Control: Satisfactory Nausea/Vomiting: None Hydration: Adequate Anesthesia-Related Issues: No Anes. Related Issues
== END 2024-01-14 09:30 | disposition home or self-care (01) | DRG 263 ==
LOC: HO.ED 19:39 → HO.EDOVER 19:52 → HO.S3 21:36
PROVIDERS: Physician Assistant Medical; Registered Nurse Emergency; Admitting Provider Surgery; Emergency Provider Emergency Medicine; PCP Nurse Practitioner Family; Visit Provider Surgery
PROC: 0FT44ZZ Resection of Gallbladder, Percutaneous Endoscopic Approach (ICD-10-PCS; CPT 47562; principal; 2024-01-13 14:30)
DX: K80.00 Calculus of gallbladder with acute cholecystitis without obstruction (principal); F17.210 Nicotine dependence, cigarettes, uncomplicated; Z71.6 Tobacco abuse counseling; Z79.899 Other long term (current) drug therapy
CPT/HCPCS: 36415; 74176; 76705; 80053; 81003; 82150; 83690; 84484; 84702; 85025; 85379; 85610; 88304; 93005; 99285; J0131; J0696; J0736; J1100; J1885; J2003; J2250; J2405; J2704; J2795; J3010; J7120

== ENCOUNTER → 2024-01-12 13:57 | Outpatient (BNV) | payer OTHER, SELFPAY | PROVIDERS: Admitting Provider Surgery; Emergency Provider Emergency Medicine; PCP Nurse Practitioner Family; Visit Provider Internal Medicine Cardiovascular Disease | DX: R07.9 Chest pain, unspecified (principal) | CPT/HCPCS: 93010 ==

== ENCOUNTER → 2024-01-12 19:39 | Outpatient (BNV) | payer OTHER, SELFPAY | PROVIDERS: Admitting Provider Surgery; Emergency Provider Emergency Medicine; PCP Nurse Practitioner Family; Visit Provider Surgery | DX: K80.00 Calculus of gallbladder with acute cholecystitis without obstruction (principal); Z90.49 Acquired absence of other specified parts of digestive tract | CPT/HCPCS: 47562; 99024; 99222 ==

== ENCOUNTER 2024-01-27 10:46 | Outpatient (AMB) | payer OTHER, SELFPAY ==
--- NOTE | 2024-01-27 10:49 | MHC.OFFVIS ---
Intake Visit Reasons: s/p cholecystectomy Intake Note: Patient is seen in office for post op assessment post laparoscopic cholecystectomy. Pt c/o: reoprts incisions healing well. Denies pain, oozing, discomfort. No longer taking rx pain meds. 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 She was found to have a large gallstone obstructing the cystic duct a distended gallbladder. Since the surgery she reports feeling much improved and is tolerating her diet without nausea or vomiting. Her abdominal pain is much improved as well following the surgery. She denies any bleeding or discharge from the incisions. PFSH Medical History Allergies Heartburn Surgical History Hx laparoscopic cholecystectomy (01/13/24) Hx of esophagogastroduodenoscopy Social History Household Members: Family Housing: House Do you presently have visiting nurse or other home services: No Alcohol intake: current Alcohol intake frequency: holidays/special occasions only Patient Tobacco Use Status: Current everyday Tobacco user Tobacco use type: Cigarette Cigarettes Per Day: 10 service: No Physical Exam Const General: no acute distress Nutritional Appearance: well nourished Orientation/consciousness: patient oriented x3 Limitations: no limitations Eyes Sclerae: sclerae normal (Nonicteric) GI Other: Soft, nondistended, nontender with normal bowel sounds. Trocar incisions are clean, dry, and intact without hernias. Skin Other: Warm, dry, normal color Neuro General: patient oriented x3 Assessment & Plan Assessment & Plan (1) Cholelithiasis: Code(s): K80.20 - Calculus of gallbladder without cholecystitis without obstruction Category: Medical (2) S/P laparoscopic cholecystectomy: Code(s): Z90.49 - Acquired absence of other specified parts of digestive tract Category: Surgical Plan 48-year-old female patient status post laparoscopic cholecystectomy. She feels much improved and her wounds are healing nicely. She may resume normal activity and may return to work as of 02/03/2024. She should continue to avoid greasy/fried foods for approximately 1 month following the surgery. She should follow up as needed. Coding Level of Care Code Global (54920) Diagnoses Cholelithiasis K80.20 S/P laparoscopic cholecystectomy Z90.49
== END 2024-01-27 10:58 | disposition home or self-care (01) ==
PROVIDERS: PCP Nurse Practitioner Family; Visit Provider Surgery
DX: K80.20 Calculus of gallbladder without cholecystitis without obstruction (principal); Z90.49 Acquired absence of other specified parts of digestive tract
CPT/HCPCS: 99024

== ENCOUNTER → 2024-01-27 10:46 | Outpatient (BNVA) | payer OTHER, SELFPAY | PROVIDERS: PCP Nurse Practitioner Family; Visit Provider Surgery ==

== ENCOUNTER 2024-06-30 09:20 | Outpatient (REF) | payer OTHER, SELFPAY ==
--- NOTE | ~2024-06-30 | XR_ITS ---
CLINICAL HISTORY: M54.9 - Dorsalgia, unspecified --- Additional Notes or Special Instructions: 3 view s pls Three views of the lumbar spine. COMPARISON: None FINDINGS: Five olv-wib-jrvlhts lumbar type vertebral bodies. Normal vertebral body alignment. Vertebral body heights are maintained. No evidence of acute vertebral body injury. Facet joint arthrosis in the lower lumbar spine. Disc space heights are preserved. There is mild neural foraminal narrowing at L5-S1. Small multilevel marginal osteophytes. Visualized portions of the bones of the pelvis appear intact. IMPRESSION: 1. No radiographic evidence of acute injury to the lumbar spine. 2. Mild lower lumbar spondylosis. This document has been electronically signed by: Niko Marin MD on 07/01/2024 12:55:59
== END 2024-06-30 09:21 | disposition home or self-care (01) ==
LOC: HO.HOSX 09:20
PROVIDERS: PCP Nurse Practitioner Family; Visit Provider Physical Medicine & Rehabilitation
DX: M54.9 Dorsalgia, unspecified (principal)
CPT/HCPCS: 72100

== ENCOUNTER 2024-06-30 09:20 | Outpatient (AMB) | payer OTHER, SELFPAY ==
[2024-06-30 09:33] VITALS: BMI 32.7
--- NOTE | 2024-06-30 09:33 | A.OFFVIS_ITS ---
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 States pain started on and off a few years ago. States while working at [employer] about 3 yrs ago, she was doing heavy lifting and pulling and injury her back. She was ordered P.T along with steroids and pain improved. Pain returned in February in her lower back mostly on her right side. At times pain is across her back, radiating pain down her right leg, numbness and tingling in toes at times. No back injection or MRI done. 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 Allergies Penicillins Allergy (Verified 06/30/24 09:33) Rash Medication List - Last Reconciled 06/30/24 by Eleanor Kay MD lpcegaq-mzpqiyxhghhpd-ykoedvvk 250-250-65 mg (Excedrin Migraine) 2 tabs PO DAILY PRN calcium carb-D3-mag ox-zinc ox 333 mg-133 unit -133 mg-5 mg (Brandon Mag Zinc Plus D3) 1 tab PO DAILY docusate sodium (Colace) 100 mg PO BID famotidine 20 mg PO DAILY qktbtaiif-NV-gvfdlslr-guaifen 3-53-956-200 mg (Tylenol Cold and Flu Severe) 2 tabs PO DAILY PRN HPI Comments Details: Chronic intermittent pain which has been ongoing at least since February. Lower back, usually more right side, all the way down to leg, sometimes both sides but mostly right side. Feels like sciatica on right leg or spasms in the back. Pins/needles mostly right leg, sometimes left leg. She thinks left sided symptoms are because she had fallen on left side. No foot drop. Does feel legs are weaker. Last major back issue 3 years, treated with oral steroid and PT. No MRI done. She was good for almost 3 years until onset in February 2024. This February, she feels it was associated with pushing beds/stretchers. Then she did fall on left side. Problems with legs since childhood, born breech. Treatment done so far: NSAIDs, heat, stretching therapy - last 3 years ago, but she had PFSH Medical History Allergies Heartburn Surgical History Hx laparoscopic cholecystectomy (01/13/24) Hx of esophagogastroduodenoscopy Social History (Updated 06/30/24 @ 09:34 by MARYCARMEN Copeland) Household Members: Family Housing: House Do you presently have visiting nurse or other home services: No Alcohol intake: current Alcohol intake frequency: holidays/special occasions only Patient Tobacco Use Status: Current everyday Tobacco user Tobacco use type: Cigarette Cigarettes Per Day: 10 service: No Current occupational status: employed 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 Patient was appropriately conversant and oriented. Good historian. MSK: No specific abnormalities found on inspection of the spine and all extremities. [No pain with palpation over the spinous processes or facets. Tender on right lower thoracic and lumbar paraspinals. Tender on quadratus lumborum. Bilateral SI joints tender, right worse than left. Right piriformis and GT tender. Bilateral ITB tender, right worse than left. Lumbar ROM was full. Bilateral hip, knee and ankle ROM WNL. No ligamentous laxity or crepitance. No increased effusion. Straight-leg raising test negative. FABERE test positive back and buttocks pain. Gillet test is negative. Jona test is negative. Scour test is negative. Strength is 5/5 in all muscle groups tested. No increased tone noted. Neurological: Neurologic examination of the upper and lower extremities was nonfocal with intact sensation, muscle stretch reflexes and without focal motor deficits . Chau?s negative bilaterally. Babinski was down going bilaterally. Clonus was negative. Gait is non-antalgic without loss of balance. Results Reviewed Results Reviewed: I independently reviewed the results of the following: Lumbar x-rays done in the office showed intact disc spaces. No vertebral fracture seen. Await final reading. Assessment & Plan Assessment & Plan (1) Sacroiliac joint dysfunction of both sides: Code(s): M53.3 - Sacrococcygeal disorders, not elsewhere classified Category: Medical (2) Piriformis syndrome of right side: Code(s): G57.01 - Lesion of sciatic nerve, right lower limb Category: Medical (3) Trochanteric bursitis, right hip: Code(s): M70.61 - Trochanteric bursitis, right hip Category: Medical (4) Iliotibial band syndrome: Code(s): M76.30 - Iliotibial band syndrome, unspecified leg Category: Medical Qualifiers: Laterality: right Qualified Code(s): M76.31 - Iliotibial band syndrome, right leg (5) Right shoulder pain: Code(s): M25.511 - Pain in right shoulder Qualifiers: Chronicity: chronic Qualified Code(s): M25.511 - Pain in right shoulder; G89.29 - Other chronic pain Plan 1. Most of her pain I think stems from right SI joint, affecting piriformis, trochanteric bursitis, and ITB. We looked at x-ray images done in the office, I believe disc spaces are intact. Await official reading. We also discussed diagnosis using a spine model. No signs of lumbar radiculopathy or neurologic deficit on exam. We agreed on starting physical therapy. She may get a roller for ITB for at- home use. She can ask PT to teacher as well. She can start cyclobenzaprine 5 mg q.h.s. p.r.n.. She says she can not tolerate more than 5 mg as it makes her very sleepy. This is for nighttime use only. Discussed side effects and precautions. 2. She would like to be seen for shoulder pain. I ordered an x-ray to be done prior to next appointment. Assessment and plan discussed with patient, and patient was agreeable. All questions were answered thoroughly. Eleanor Kay MD, WILL Board Certified, [place] Board of Physical Medicine and Rehabilitation (ABPMR) Board Certified, [place] Board of Electrodiagnostic Medicine (ABEM) Orders: Orders XR lumbar spine 2-3V Today M54.9 - Dorsalgia, unspecified XR shoulder LT min 2V Today M25.512 - Pain in left shoulder XR shoulder RT min 2V Today M25.511 - Pain in right shoulder PT Evaluation and Treatment Today G57.01 - Lesion of sciatic nerve, right lower limb, M53.3 - Sacrococcygeal disorders, not elsewhere classified, M70.61 - Trochanteric bursitis, right hip, M76.30 - Iliotibial band syndrome, unspecified leg Medications: New cyclobenzaprine 5 mg PO BEDTIME PRN 30 tabs 2RF muscle spasm Coding Level of Care Code New Pt Level 4 (61175) Complex EM visit Add On G2211 Diagnoses Sacroiliac joint dysfunction of both sides M53.3 Piriformis syndrome of right side G57.01 Trochanteric bursitis, right hip M70.61 Iliotibial band syndrome of right side M76.31 Laterality: right Chronic right shoulder pain M25.511; G89.29 Chronicity: chronic
--- OUTSIDE RECORDS SUMMARY | 2024-06-30 09:36 | XMS_ITS | Continuity of Care Document ---
Author Organization [facility] Larry Scott n's [facility] Address [address], [address] [place] [address]- Care Team Providers Care Harbormaster Name Role Phone Jagdish Bucio NP Primary Care Physician [phone] [id number] Date[facility]s): 03/21/24 - 06/28/24 [facility] Smyerstephanie TaverasNuves [facility] [address] [place] [address], [address] [place], [place] [address] Attending Physician: Not on Staff, Attending MD Referring Physician: Jagdish Bucio NP Encounter Type: Pre Office Visit Allergies, Adverse Reactions, Alerts Substance Criticality Severity Reaction Reaction Severity Status penicillins Active Immunizations Given and Recorded Vaccine Date Status Refusal Reason influenza virus vaccine, inactivated 12/12/20 Papa rded influenza virus vaccine, inactivated 12/18/19 Papa rded SARS-CoV-2 (COVID-19) mRNA BNT-162b2 vac 03/04/20 Recorded SARS-CoV-2 (COVID-19) mRNA BNT-162b2 vac 02/12/20 Recorded tetanus/diphtheria/pertussis, acel(Tdap) 02/28/16 Given Medications Acetaminophen extra strength for migranes, 0 Refills, Maintenance, 01/21/15 10:36:01 AM EST Start Date: 01/21/15 Status: Ordered Repeat number: 1 Aleve = 220 mg, By Mouth, Every 12 hours, 0 Refills, Maintenance, 03/11/22 4:14:00 PM EST, Partial fill upon patient request if the prescription is for a schedule II opioid drug. Start Date: 03/11/22 Status: Ordered Repeat number: 1 Ibuprofen Refills 0, Maintenance, 12/07/19 2:59:00 PM EDT Start Date: 12/07/19 Status: Ordered Repeat number: 1 Nexplanon 68 mg subcutaneous implant 1 each = 68 mg, Subcutaneous Infusion, Once, Lot [id number] exp 05/09, # 1 each, 0 Refills, Soft Stop, 04/25/15 10:02:56 AM EST Start Date: 04/25/15 Status: Ordered Quantity: 1.0 Unit: each Repeat number: 1 Nexplanon 68 mg subcutaneous implant 1 each = 68 mg, Subcutaneous Infusion, Once, Pharmacy supplied and inserted by Elly Kemp 12/07/2019 lot#[id number] exp# 01/24/2022 [facility]#[id number], # 1 each, 0 Refills, Soft Stop, 10/25/19 3:35:00 PM EDT, [facility], 178, cm, 10/25/19 14:40:00 EDT, Height, 114.5, kg, 10/25/19 14:40:00 EDT, Dry Weight Start Date: 10/25/19 Status: Ordered Quantity: 1.0 Unit: each Repeat number: 1 Indication: Moderate cervical dysplasia PredniSONE By Mouth, Daily, pt on 5 days of this medication, 0 Refills, Maintenance, 03/11/22 4:14:00 PM EST, Partial fill upon patient request if the prescription is for a schedule II opioid drug. Start Date: 03/11/22 Status: Ordered Repeat number: 1 Vitamin D3 = 2,000 International_Units, By Mouth, 0 Refills, Maintenance, 03/18/15 9:34:29 AM EST Start Date: 03/18/15 Status: Ordered Repeat number: 1 ZyrTEC 10 mg oral tablet 1 tablet = 10 mg, By Mouth, Daily, 0 Refills, Maintenance, 10/25/19 2:42:00 PM EDT Start Date: 10/25/19 Status: Ordered Repeat number: 1 Problem List Condition Confirmation Course Effective Dates Status Health St atus Informant H/O nausea Confirmed Active Migraines Confirmed Active Obese class II Confirmed Active Obesity (BMI 30-39.9) Confirmed Active RUQ abdominal pain Confirmed Active Social History Social History Type Response Smoking Status Current some day smo ker; Tobacco user in household: No; Type: Cigarettes entered on: 06/21/17 Sex Sex Representation Female (finding) Patient Care team information Care Team Personnel Name: Jagdish Bucio NP Position: Reference Physician Member Role: PCP Address: [address] [place], [place] [address] Telecom: Care Team Related Persons Name: AMPARO WELLS Name: ERIBERTO WEST Name: ERIBERTO WEST Insurance Providers Guarantor name: [facility] Health Plan Information #: 1 Payer: [employer]IT [employer] PPO Member Number: [id number] Policy Number: NA Group Number: [id number] Health Plan Information #: 2 Payer: [employer] PPO Member Number: [id number] Policy Number: NA Group Number: NA
--- OUTSIDE RECORDS SUMMARY | 2024-06-30 09:36 | XMS_ITS | Continuity of Care Document ---
Author Organization [facility] Address [address] [facility], [address] [place] [address]- Care Team Providers Care Scientific Investigator Name Role Phone Rupinder HDEZ, Jagdish Primary Care Physician [phone] Encounter [facility] Date(s): 05/29/24 - 06/28/24 [facility] [address] [facility], [address] [place] [id number] Attending Physician: Admtr, Ar8 Admitting Physician: Admtr, Ar8 Referring Physician: Admtr, Ar8 Encounter Type: Triage Allergies, Adverse Reactions, Alerts Substance Criticality Severity [...] = 68 mg, Subcutaneous Infusion, Once, Lot [id number] exp 05/09, # 1 each, 0 Refills, Soft Stop, 04/25/15 10:02:56 AM EST Start Date: 04/25/15 Status: Ordered Quantity: 1.0 Unit: each Repeat number: 1 Nexplanon 68 mg subcutaneous implant 1 each = 68 mg, Subcutaneous Infusion, Once, Pharmacy supplied and inserted by Elly Kemp 12/07/2019 lot#[id number] exp# 01/24/[address] [facility]#[id number], # 1 each, 0 Refills, Soft Stop, 10/25/19 3:35:00 PM EDT, [facility], 178, cm, 10/25/19 14:40:00 [...] Position: Reference Physician Member Role: PCP Address: [address] [place] [id number] Telecom: Care Team Related Persons Name: AMPARO WELLS Name: ERIBERTO WEST Name: ERIBERTO WEST Insurance Providers Guarantor name: [facility] Information #: 1 Payer: BLUE BENEFIT [employer] PPO Member Number: NA Policy Number: NA Group Number: NA
== END 2024-06-30 10:17 | disposition home or self-care (01) ==
LOC: HO.HOS 09:21
PROVIDERS: PCP Nurse Practitioner Family; Visit Provider Physical Medicine & Rehabilitation
DX: M53.3 Sacrococcygeal disorders, not elsewhere classified (principal); G57.01 Lesion of sciatic nerve, right lower limb; M70.61 Trochanteric bursitis, right hip; M76.31 Iliotibial band syndrome, right leg; M25.511 Pain in right shoulder; G89.29 Other chronic pain
CPT/HCPCS: 99204

== ENCOUNTER → 2024-06-30 09:44 | Outpatient (BNV) | payer OTHER, SELFPAY | PROVIDERS: PCP Nurse Practitioner Family; Visit Provider Radiology Diagnostic Radiology | DX: M54.50 Low back pain, unspecified (principal) | CPT/HCPCS: 72100 ==

== ENCOUNTER 2024-08-01 08:33 | Outpatient (AMB) | payer OTHER, SELFPAY ==
--- NOTE | 2024-08-01 08:37 | A.OFFPC_ITS ---
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 Required: No Is last menstrual period known: Yes Last menstrual period: 08/01/24 Post menopausal: No Patient : No Allergies Penicillins Allergy (Verified 08/01/24 09:00) Rash Medication List - Last Reconciled 08/01/24 by Jagdish Bucio CNP cyclobenzaprine 5 mg PO BEDTIME PRN Tobacco use date assessed: 08/01/24 Dental Screening Dental Screen Date: 08/01/24 Did you have a dental visit in the last 12 months?: Yes Did you have a dental problem in the last 6 months where you did not have access to dental care?: No Was dental information given to patient?: Patient has dentist HPI HPI Comments History of Present Illness Details 48-year-old female presents to establish care. Prior PCP? - [facility], [place] Last office visit/CPE/labs - About 6 years ago Acute issue(s) - Reports chronic pain to her shoulders, lower back, and knees. She is on cyclobenzaprine 5 mg as needed at bedtime with some relief. Past Medical History - Hyperopia, Cyst of bilat kidney, acqui red, migraine headaches, back disorder, arthritis of multiple joints, SI joint dysfunction of both sides, bursitis of right hip, iliotibial band syndrome, right shoulder pain piriformis syndrome of right side, heartburn, TMJ Surgical History - Laparoscopic cholecystectomy Family History - Dad: Alcohol abuse - Mom: HTN, HLD Social History - Smokes 3-8 cigarettes daily, have been smoking for about 26 years. Does not vape. Drinks 3-4 mixed drinks twice monthy. Denies recreational drug use - Has been making healthy dietary choice s. Walks regularly. Reports poor sleep due to chronic pain and also been waken up by her 3 [employer] maintenance - Last eye exam was 2 years ago. Referre d to Ophthalmology for routine eye exam - Last dental visit was 5 months ago - Last tetanus vaccine was more than 10 years ago; she will receive the vaccine at her next visit - She does not get vaccinated for the fl u; declines vaccination - Last pap smear test was 3-4 years ago with [facility] cotton puller: Benign. She will call them to schedule an appointment for a pap smear test - Last mammogram was in at [facility] in 02/2024: negative. Record not current the available. Will obtain record for review [facility] for skin checks [facility] [place]o for chronic joints and back pain [facility] physical therapy for chronic back pain PFSH Medical History (Updated 08/01/24 @ 09:53 by Jagdish Bucio CNP) Cyst of kidney, acquired Hx of migraine headaches Back disorder Arthritis Sinusitis FH: cholecystectomy Allergies Heartburn Surgical History (Updated 07/08/24 @ 00:02 by Amada Hannon) Hx laparoscopic cholecystectomy (01/13/24) Hx of esophagogastroduodenoscopy Family History (Updated 08/01/24 @ 08:49 by Racheal Patterson MA) Father Alcohol abuse Mother High blood pressure High cholesterol Social History (Updated 08/01/24 @ 08:42 by Racheal Patterson MA) Household Members: Family Housing: House Do you presently have visiting nurse or other home services: No Alcohol intake: current Alcohol intake frequency: holidays/special occasions only Patient Tobacco Use Status: Current everyday Tobacco user Tobacco use type: Cigarette Cigarettes Per Day: 10 e-Cigarette/Vaping Use: Never Used Second Hand Smoke Exposure: No service: No Current occupational status: employed 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 1. Little interest or pleasure in doing things: not at all 2. Feeling down, depressed, or hopeless: not at all 3. Trouble falling or staying asleep, or sleeping too much: several days 4. Feeling tired or having little energy: more than half the days 5. Poor appetite or overeating: several days 6. Feeling bad about yourself - or that you are a failure or have let yourself or your family down: not at all 7. Trouble concentrating on things, such as reading the newspaper or watching television: more than half the days 8. Moving or speaking so slowly that other people could have noticed. Or the opposite - being so fidgety or restless that you have been moving around a lot more than usual: not at all 9. Thoughts that you would be better off or of hurting yourself in some way : not at all Total score: 6 Depression Screening Interpretation: Positive Depression Screening Done: Yes 73279 - PHQ-9 Billing: Yes Source: Developed by Drs. Bebo Deutsch, Miranda Green, Alexis Vicente and colleagues, with an educational lashaun from [employer]. Thrive Questionnaire Date Thrive assessed: 08/01/24 I am a: Patient What is your living situation today?: I have a steady place to live Within the past 12 months, did the food you bought not last and you didn't have the money to get more?: Never true Within the past 12 months, did you worry whether your food would run out before you got money to buy more?: Never true Do you have trouble paying for medicines?: No Do you have trouble getting transportation to medical appointments?: No Do you have trouble paying your heating and electricity bill?: No Do you have trouble taking care of your child, family member or friend?: No Do you have trouble with day-to-day activities such as bathing, preparing meals, shopping, managing finances, etc.?: No Are you currently unemployed and looking for a job?: No Are you interested in more education?: No Please select the resources that you would like help with: None Currently or been in a relationship where the following occur: No concerns reported THRIVE Score: 0 AUDIT C Alcohol Use Questionnaire (AUDIT-C) 1. How often do you have a drink containing alcohol?: 2-4 times a month 2. How many drinks containing alcohol do you have on a typical day when you are drinking?: 3 or 4 3. How often do you have six or more drinks on one occasion?: Less than monthly Total Score: 4 Score Reviewed/Action Taken: Yes LLILIE-7 AMB Questionnaire LILLIE-7 Date LILLIE - 7 assessed: 08/01/24 Feeling nervous, anxious, or on edge: 1 = Several days Not being able to stop or control worryin = Several days Worrying too much about different things: 1 = Several days Trouble relaxin = Several days Being so restless that it is hard to sit still: 1 = Several days Becoming easily annoyed or irritable: 1 = Several days Feeling afraid as if something awful might happen: 0 = Not at all Total LILLIE-7 score (0-4 normal; 5-9 mild; 10-14 moderate; 15-21 severe): 6 Source: Developed by Drs. Bebo Deutsch, Miranda Green, Alexis Vicente and colleagues, with an educational lashaun from [employer]. LILLIE-7 Assessment Billing LILLIE-7 Assessment Tool: LILLIE-7 Assessment 53633 Review of Systems Const Details: Denies chills, Denies fatigue, Denies fever(s), Denies headache(s) and Denies weakness HEENT Denies change in vision, Denies dizziness, Denies headache(s), Denies hearing loss, Denies nasal congestion, Denies sinus pain, Denies sinus pressure and Denies sore throat Card Denies chest pain, Denies lightheadedness, Denies dyspnea and Denies other (palpitations) Resp Denies cough, Denies dyspnea and Denies wheezing GI Denies abdominal pain, Denies melena, Denies hematochezia, Denies change in bowel habits, Denies dyspepsia and Denies nausea Denies hematuria and Denies dysuria Musc Reports chronic pain of shoulders, lower back, and knees, Denies numbness and Denies tingling Skin/Breast Denies rash, Denies unusual bruising and Denies wounds Neuro Denies abnormal gait, Denies dizziness, Denies headache(s), Denies memory loss, Denies numbness, Denies Sensory deficit (Neuro), Denies tingling and Denies weakness Psych Denies anxiety, Denies depression and Denies memory loss Endo Denies cold intolerance, Denies fatigue, Denies heat intolerance, Denies polyd ipsia and Denies polyuria Zia/Lymph Denies easy bleeding and Denies easy bruising Aller/Immun Denies wheezing Physical exam (Primary Care) Vital Signs: Last Vital Signs Temp 97.7 F 08/01/24 08:42 Pulse 72 08/01/24 08:42 Resp 16 08/01/24 08:42 BP 120/57 L 08/01/24 08:42 Pulse Ox 100 08/01/24 08:42 Oxygen Delivery Method Room Air 08/01/24 08:42 BMI result Body Mass Index 33.0 Tobacco/Smoking Status: Tobacco use Status Tobacco use date assessed 08/01/24 08/01/24 08:42 Patient Tobacco Use Status Current everyday Tobacco 08/01/24 08:42 Tobacco use type Cigarette 08/01/24 08:42 e-Cigarette/Vaping Use Never Used 08/01/24 08:42 PHQ-9: PHQ-9 Score PHQ-9: Total score 6 08/01/24 12:22 Depression Screening Interpretation: Positive Thrive Assessment: Date of Thrive Assessment Date Thrive assessed 08/01/24 08/01/24 08:42 Currently or been in a relationship where the following occur: No concerns reported Const Other: General: no acute distress, well developed, alert and awake Nutritional Appearance: well nourished Orientation/consciousness: patient oriented x3 HENMT Head: Yes normocephalic and Yes atraumatic Ears: hearing grossly normal bilaterally and TM's normal bilaterally General nose exam: Normal external nose present and Normal nares present Mouth: Normal oral and palatal mucosa present and moist mucous membranes Teeth and gingiva: dentition normal Throat: Yes oropharynx normal Eyes Pupils: Equal, round and reactive pupils present and Pupil accommodation reflex normal EOM: EOMs intact bilaterally Neck Neck: Yes normal visual inspection, Yes no lymphadenopathy and Yes trachea midline Thyroid: Thyroid normal Carotids: no bruits Lymphatic: no lymphadenopathy noted Chest Chest palpation & inspection: normal inspection of the chest Resp Effort & Inspection: normal respiratory effort Auscultation: clear to auscultation bilaterally Cardio Rate: regular rate Rhythm: regular rhythm Heart sounds: S1 normal heart sound present, S2 normal heart sound present, no gallops, no murmurs and no rubs Bruits: no abdominal aortic bruits and no carotid bruits GI Palpation (GI): No Abdominal aortic bruit present, Soft to palpation, nontender, No hepatosplenomegaly present and No Rebound tenderness present Auscultation: normal bowel sounds General: Yes no CVA tenderness Back/Spine/Pelvis Back: no CVA tenderness Cervical Spine: cervical ROM normal and No Cervical spine tenderness Thoracic/Lumbar Spine: thoraco-lumbar ROM normal, No pain with thoraco-lumbar ROM, No thoracic spinal tenderness and positive lumbar spinal tenderness Skin General: warm and dry. Normal skin color. Normal skin turgor Lesions: no lesions Rashes: no rashes Trauma: no lacerations or abrasions Wounds: no wounds Nails: normal Neuro General: patient oriented x3, gait normal and CN's II-XI intact bilaterally Cranial nerves: Yes Equal, round and reactive pupils present Cognition (Neuro): normal cognition Gait exam (Neuro): Normal gait present Motor exam (neuro): 5/5 motor strength present throughout Sensory Exam: No Sensory deficit (Neuro) Deep tendon reflexes (DTR's): Right patellar reflex intensity grade: 2+ and Left patellar reflex intensity grade: 2+ Extrem General: Yes normal to inspection, No edema and No calf tenderness Psych Appearance: grossly normal Affect: normal affect Attitude: cooperative Thought process: Normal thought process present Coding Level of Care Code New Pt Level 3 (64228) New Pt Prev Care 40-64y(35404) Diagnoses Normal physical examination, routine Z00.00 Arthritis, multiple joint involvement M12.9 Chronic low back pain M54.50; G89.29 Sleep disturbance G47.9 Hyperopia H52.00 Obesity (BMI 30-39.9) E66.9 Smoking 1/2 pack a day or less F17.210 History of cystic kidney disease Z87.448 Breast cancer screening by mammogram Z12.31 Laboratory tests ordered as part of a complete physical exam (CPE) Z00.00 Additional Codes LILLIE-7 Assessment Billing - LILLIE-7 Assessment Tool: LILLIE-7 Assessment 41321 ([id number]) PHQ-9 - 55430 - PHQ-9 Billing: Yes ([id number]) Assessment & Plan Assessment & Plan (1) Normal physical examination, routine: Code(s): Z00.00 - Encounter for general adult medical examination without abnormal findings Category: Medical Plan: No significant functional limitation noted. Continue current treatment regimen. Perform lab work and follow-up for telehealth visit in 2-3 weeks. Return sooner with symptoms or concerns. Verbalized understanding and agreed with the treatment plan. (2) Arthritis, multiple joint involvement: Code(s): M12.9 - Arthropathy, unspecified Category: Medical Plan: Reports chronic pain to her shoulders, lower back, and knees. She is on cyclobenzaprine 5 mg as needed at bedtime with some relief. Lumbar spine tenderness to palpation. Continue current treatment regimen. Warm/cool compresses encouraged. Follow-up with ortho and Physical therapy as planned. Return with symptoms or concerns. Verbalized understanding and agreed with the treatment plan. (3) Chronic low back pain: Code(s): M54.50 - Low back pain, unspecified; G89.29 - Other chronic pain Category: Medical Plan: Plan as above. (4) Sleep disturbance: Code(s): G47.9 - Sleep disorder, unspecified Category: Medical Plan: Reports poor sleep due to chronic pain and also been waken up by her 3 poppies. Instructed on sleep hygiene. Continue current treatment regimen for pain. Follow-up as needed. Verbalized understanding and agreed with the plan. (5) Hyperopia: Code(s): H52.00 - Hypermetropia, unspecified eye Category: Medical Plan: Her last eye exam was 2 years ago. Referred to Ophthalmology for routine eye exam. (6) Obesity (BMI 30-39.9): Code(s): E66.9 - Obesity, unspecified Category: Medical Plan: She currently weighs 226 lb, BMI is 33.0. Healthy diet and routine exercise encouraged. Referred to [facility] dietitian/welding foreman as requested. Follow-up as needed. Verbalized understanding and agreed with the plan. (7) Smoking 1/2 pack a day or less: Code(s): F17.210 - Nicotine dependence, cigarettes, uncomplicated Category: Social Hx Plan: She smokes 3-8 cigarettes daily, have been smoking for about 26 years. Instructed on the health risks and complications of cigarette smoking and cessation encouraged. Declines medication treatment for nicotine dependence at this time and notes that she will quit without treatment. Follow-up as needed. Verbalized understanding and agreed with the plan. (8) History of cystic kidney disease: Code(s): Z87.448 - Personal history of other diseases of urinary system Category: Medical Plan: She was followed by Dr. Mars at [facility] for 10 yrs. Cyst were stable and was therefore discharged 2 yrs ago. No acute symptoms at this time. Follow-up as needed. Verbalized understanding and agreed with the plan. (9) Breast cancer screening by mammogram: Code(s): Z12.31 - Encounter for screening mammogram for malignant neoplasm of breast Category: Medical Plan: Last mammogram was in at [facility] in 02/2024: negative. Record not current the available. Will obtain record for review. (10) Laboratory tests ordered as part of a complete physical exam (CPE): Code(s): Z00.00 - Encounter for general adult medical examination without abnormal findings Category: Medical Plan: Fasting labs ordered as part of a complete physical exam. Advised to fast for at least 10 hours before getting labs drawn. May drink water Verbalized understanding and agreed with treatment plan. Orders: Orders Complete Blood Count Auto Diff Today Z00.00 - Encounter for general adult me dical examination without abnormal findings Microalbumin, Random (w Creat) Today Z00.00 - Encounter for general adult medical examination without abnormal findings UA CC w/rflx Micro + Cult Today Z00.00 - Encounter for general adult medical examination without abnormal findings Vitamin D 25-OH Total Today Z00.00 - Encounter for general adult medical examination without abnormal findings Comprehensive [place]. Panel Fast Today Z00.00 - Encounter for general adult medical examination without abnormal findings TSH reflex Free T4 Today Z00.00 - Encounter for general adult medical examination without abnormal findings Lipid Panel Today Z00.00 - Encounter for general adult medical examination without abnormal findings Referrals Ophthalmology Referral H52.00 - Hypermetropia, unspecified eye Nutrition/Dietitian Referral E66.9 - Obesity, unspecified
[2024-08-01 08:42] VITALS: BP 120/57; PULSE 72; RESP 16; TEMP 36.5; O2SAT 100; BMI 33.0
== END 2024-08-01 09:25 | disposition home or self-care (01) ==
LOC: HO.HMCFM 08:34
PROVIDERS: PCP Nurse Practitioner Family; Visit Provider Nurse Practitioner Family
DX: Z00.00 Encounter for general adult medical examination without abnormal findings (principal); M12.9 Arthropathy, unspecified; M54.50 Low back pain, unspecified; G89.29 Other chronic pain; G47.9 Sleep disorder, unspecified; E66.9 Obesity, unspecified; Z68.33 Body mass index [BMI] 33.0-33.9, adult; F17.210 Nicotine dependence, cigarettes, uncomplicated; Z87.448 Personal history of other diseases of urinary system; Z12.31 Encounter for screening mammogram for malignant neoplasm of breast; H52.00 Hypermetropia, unspecified eye

== ENCOUNTER → 2024-08-01 08:33 | Outpatient (BNVA) | payer OTHER, SELFPAY | PROVIDERS: Visit Provider Nurse Practitioner Family | DX: Z00.00 Encounter for general adult medical examination without abnormal findings (principal); N28.1 Cyst of kidney, acquired; G43.909 Migraine, unspecified, not intractable, without status migrainosus; M53.3 Sacrococcygeal disorders, not elsewhere classified; M76.30 Iliotibial band syndrome, unspecified leg; G57.01 Lesion of sciatic nerve, right lower limb; R12 Heartburn; M26.609 Unspecified temporomandibular joint disorder, unspecified side; M54.50 Low back pain, unspecified; G89.29 Other chronic pain; G47.9 Sleep disorder, unspecified; H52.00 Hypermetropia, unspecified eye; E66.9 Obesity, unspecified; F17.210 Nicotine dependence, cigarettes, uncomplicated; Z87.448 Personal history of other diseases of urinary system; Z68.33 Body mass index [BMI] 33.0-33.9, adult | CPT/HCPCS: 96127 ==

== ENCOUNTER 2024-08-08 07:35 | Outpatient (REF) | payer OTHER, SELFPAY ==
--- NOTE | ~2024-08-08 | XR_ITS ---
EXAMINATION: XR SHOULDER, LEFT CLINICAL INFORMATION: M25.512 - Pain in left shoulder COMPARISON: None available. TECHNIQUE: AP external rotation, Grashey, scapular Y, and axillary views of the left shoulder. FINDINGS: No acute cortical disruption or malalignment. No lytic or blastic lesions. XR/XR shoulder LT min 2V IMPRESSION: Normal x-ray left shoulder. Electronically signed by: Konstantin Patiño MD 08/08/2024 09:12 AM EDT
--- NOTE | ~2024-08-08 | XR_ITS ---
EXAMINATION: XR SHOULDER, RIGHT CLINICAL INFORMATION: M25.511 - Pain in right shoulder COMPARISON: None available. TECHNIQUE: AP external rotation, Grashey, scapular Y, and axillary views of the right shoulder. FINDINGS: Sclerosis along the articular surface of the acromioclavicular joint. No acute cortical disruption or malalignment. No lytic or blastic lesions. XR/XR shoulder RT min 2V IMPRESSION: Mild degenerative changes, acromioclavicular joint. Electronically signed by: Konstantin Patiño MD 08/08/2024 09:13 AM EDT
[2024-08-08 07:50] LABS: MANUAL DIFF FLAG NO
[2024-08-08 08:06] LABS: Basophils Absolute Auto 0.1 X10*3/uL (0.0-0.2); Basophils Percent Auto 0.9 % (0-2); Eosinophils Absolute Auto 0.2 X10*3/uL (0.0-0.4); Eosinophils Percent Auto 3.1 % (0-4); Hemoglobin 13.3 g/dl (12.0-16.0); Imm Gran Abs Auto 0.02 X10*3/uL (0.00-0.03); Imm Gran Pct Auto 0.3 % (0.0-0.4); Lymphocytes Absolute Auto 2.5 X10*3/uL (1.2-4.9); Lymphocytes Percent Auto 32.6 % (20-40); Mean Corpuscular HGB Conc 33.3 g/dl (31.0-35.0); Mean Corpuscular Hemoglobin 30.7 pg (27.0-33.0); Mean Corpuscular Volume 92.4 fL (80.0-98.0); Mean Platelet Volume 10.2 fL (9.4-12.3); Monocytes Absolute Auto 0.4 X10*3/uL (0.1-1.2); Monocytes Percent Auto 5.3 % (2-11); Neutrophils Absolute Auto 4.5 x10*3/uL (2.0-8.3); Neutrophils Percent Auto 57.8 % (45-73); Platelet Count 298 X10*3/uL (160-400); Red Blood Count 4.33 X10*6/uL (4.20-5.50); Red Cell Distribution Width 12.4 % (11.0-16.0); White Blood Count 7.8 X10*3/uL (4.8-10.8)
[2024-08-08 08:25] LABS: Appearance Urine Cloudy; Color Urine Dark Yellow; Glucose Urine UA Negative (Negative); Leukocyte Esterase Urine Trace (Negative); Nitrite Urine Negative (Negative); PH 5.5 (5.0-9.0); UMIC TRIGGER UACC YES; Urine Blood Moderate (2+) (Negative); Urine Ketones Trace mg/dL (Negative); Urine Protein Trace mg/dL (Neg-Trace)
[2024-08-08 08:42] LABS: Bacteria Urine 4+ (None Seen); Hyaline Casts Urine 0-2 /LPF (0-2); RBC Urine 0-2 /HPF (0-2); WBC Urine 0-5 /HPF (0-5)
[2024-08-08 08:45] LABS: Alanine Aminotransferase 17 U/L (0-31); Albumin Level 4.2 g/dL (3.5-5.0); Alkaline Phosphatase 61 U/L (39-117); Anion Gap 11 (12-20); Aspartate Amino Transferase 18 U/L (5-31); Bilirubin Total 0.5 mg/dL (0.0-1.0); Blood Urea Nitrogen 10 mg/dL (9-16); Calcium 9.1 mg/dL (8.4-10.2); Carbon Dioxide 25 mmol/L (22-29); Chloride 109 mmol/L (96-108); Cholesterol 164 mg/dL (<200); Estimated Glomerular Filt Rate > 60; Glucose Fasting 97 mg/dL (60-99); HDL Cholesterol 49 mg/dL (>40); LDL Cholesterol Calculated 101 mg/dL (<100); Potassium 4.1 mmol/L (3.3-5.1); Sodium 141 mmol/L (135-145); Total Protein 6.6 g/dL (6.5-8.0); Triglycerides 73 mg/dL (<150)
[2024-08-08 09:03] LABS: TSH reflex Free T4 1.51 uIU/mL (0.32-4.0); Vitamin D 25-OH Total 23.5 ng/mL (>30)
[2024-08-08 09:09] LABS: Microalbum/Creatinine Ratio Ur 2.6 ug/mg cr (<30)
== END 2024-08-08 07:36 | disposition home or self-care (01) ==
LOC: HO.LAB 07:35
PROVIDERS: Absent Provider Physical Medicine & Rehabilitation; PCP Nurse Practitioner Family; Visit Provider Nurse Practitioner Family
DX: Z00.00 Encounter for general adult medical examination without abnormal findings (principal); M25.512 Pain in left shoulder; M25.511 Pain in right shoulder
CPT/HCPCS: 36415; 73030; 80053; 80061; 81001; 82043; 82306; 82570; 84443; 85025

== ENCOUNTER → 2024-08-08 08:55 | Outpatient (BNV) | payer OTHER, SELFPAY | PROVIDERS: Absent Provider Physical Medicine & Rehabilitation; PCP Nurse Practitioner Family; Visit Provider Radiology Diagnostic Radiology | DX: M25.512 Pain in left shoulder (principal); M25.511 Pain in right shoulder | CPT/HCPCS: 73030 ==

== ENCOUNTER 2024-08-18 09:10 | Outpatient (AMB) | payer OTHER, SELFPAY ==
[2024-08-18 09:13] VITALS: BMI 33.4
--- NOTE | 2024-08-18 09:13 | A.OFFVIS_ITS ---
Vital Signs 08/18/24 09:13 Height 5 ft 9 in Weight 226 lb BMI 33.4 Intake Visit Reasons: OV-Back and LT shoulder f/u Intake Note: Leigh Ann is a 48 year old female who presents today for a follow up of the right lower back and left shoulder. At last visit we discussed starting physical therapy and getting a roller for ITB for at-home use. Patient states that physical therapy is going well but feels that the pain is still there. She states that she has two to three more appointments coming up in the next few weeks. She noted that she did not buy a roller. last PT appt was on 08/03/24. Allergies Penicillins Allergy (Verified 08/18/24 09:16) Rash Medication List - Last Reconciled 08/18/24 by Eleanor Kay MD cyclobenzaprine 5 mg PO BEDTIME PRN HPI Comments Details: Chronic intermittent pain which has been ongoing at least since February. Lower back, usually more right side, all the way down to leg, sometimes both sides but mostly right side. Feels like sciatica on right leg or spasms in the back. Pins/needles mostly right leg, sometimes left leg. She thinks left sided symptoms are because she had fallen on left side. No foot drop. Does feel legs are weaker. Last major back issue 3 years, treated with oral steroid and PT. No MRI done. She was good for almost 3 years until onset in February 2024. This February, she feels it was associated with pushing beds/stretchers. Then she did fall on left side. Problems with legs since childhood, born breech. 1. back pain - right sided, we thought was SI, ITB, trochanter - PT helps, doing the exercises that help. Soreness after the exercises sometimes. On occasion on both feet, right worse than left, positional. Denies claudication. Xray showed preserved disc spaces; facet arthrosis. Flexeril as needed, qhs when not working, helps. No side effects. 2. shoulder pain - right worse than left xray did show mild sclerosis on AC on right; normal left Denies injury. Chronic recurrent. Been worse the past few months. Pain with overhead activities, limited ROM due to pain. Right handed. She also mentions waking up with numbness on right arm. Admits history of CTS. Has been wearing wrist braces. No EMG. PFSH Medical History (Updated 08/18/24 @ 09:49 by Eleanor Kay MD) Cyst of kidney, acquired Hx of migraine headaches Back disorder Arthritis Sinusitis FH: cholecystectomy Allergies Heartburn Surgical History (Updated 07/08/24 @ 00:02 by Amada Hannon) Hx laparoscopic cholecystectomy (01/13/24) Hx of esophagogastroduodenoscopy Family History (Updated 08/01/24 @ 08:49 by Racheal Patterson MA) Father Alcohol abuse Mother High blood pressure High cholesterol Social History (Updated 08/01/24 @ 08:42 by Racheal Patterson MA) Household Members: Family Housing: House Do you presently have visiting nurse or other home services: No Alcohol intake: current Alcohol intake frequency: holidays/special occasions only Patient Tobacco Use Status: Current everyday Tobacco user Tobacco use type: Cigarette Cigarettes Per Day: 10 e-Cigarette/Vaping Use: Never Used Second Hand Smoke Exposure: No service: No Current occupational status: employed 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 Patient was appropriately conversant and oriented. Good historian. MSK: No specific abnormalities found on inspection of the spine and all extremities. Tender on right lower lumbar paraspinals. Bilateral SI joints tender, right worse than left. Right piriformis and GT tender. Slump sit test reported shooting pain to right foot. Tender and tight on right upper trapezius. Full shoulder range of motion although with pain on abduction and forward flexion. Mildly positive right empty can sign, but pointing to trapezius as source of pain. Negative speed's test. Positive carpal compression on right wrist. Negative Tinel's sign on elbows. No intrinsic hand weakness. No hand atrophy. Strength is 5/5 in all muscle groups tested. No increased tone noted. Neurological: Neurologic examination of the upper and lower extremities was nonfocal with intact sensation, muscle stretch reflexes and without focal motor deficits . Chau?s negative bilaterally. Babinski was down going bilaterally. Clonus was negative. Gait is non-antalgic without loss of balance. Results Reviewed Results Reviewed: Ordering Physician: Eleanor Munroe Date of Service: 08/08/24 Procedure(s): XR shoulder LT min 2V Accession Number(s): [id number] cc: Eleanor Munroe; Jagdish Bucio CNP~ EXAMINATION: XR SHOULDER, LEFT CLINICAL INFORMATION: M25.512 - Pain in left shoulder COMPARISON: None available. TECHNIQUE: AP external rotation, Grashey, scapular Y, and axillary views of the left shoulder. FINDINGS: No acute cortical disruption or malalignment. No lytic or blastic lesions. XR/XR shoulder LT min 2V IMPRESSION: Normal x-ray left shoulder. Electronically signed by: Konstantin Patiño MD 08/08/2024 09:12 AM EDT Ordering Physician: Eleanor Munroe Date of Service: 08/08/24 Procedure(s): XR shoulder RT min 2V Accession Number(s): [id number] cc: Eleanor Munroe; Jagdish Bucio CNP~ EXAMINATION: XR SHOULDER, RIGHT CLINICAL INFORMATION: M25.511 - Pain in right shoulder COMPARISON: None available. TECHNIQUE: AP external rotation, Grashey, scapular Y, and axillary views of the right shoulder. FINDINGS: Sclerosis along the articular surface of the acromioclavicular joint. No acute cortical disruption or malalignment. No lytic or blastic lesions. XR/XR shoulder RT min 2V IMPRESSION: Mild degenerative changes, acromioclavicular joint. Electronically signed by: Konstantin Patiño MD 08/08/2024 09:13 AM EDT RP Ordering Physician: Eleanor Munroe Date of Service: 06/30/24 Procedure(s): XR lumbar spine 2-3V Accession Number(s): [id number] cc: Eleanor Munroe; Jagdish Bucio CNP~ CLINICAL HISTORY: M54.9 - Dorsalgia, unspecified --- Additional Notes or Special Instructions: 3 views pls Three views of the lumbar spine. COMPARISON: None FINDINGS: Five [id number] lumbar type vertebral bodies. Normal vertebral body alignment. Vertebral body heights are maintained. No evidence of acute vertebral body injury. Facet joint arthrosis in the lower lumbar spine. Disc space heights are preserved. There is mild neural foraminal narrowing at L5-S1. Small multilevel marginal osteophytes. Visualized portions of the bones of the pelvis appear intact. IMPRESSION: 1. No radiographic evidence of acute injury to the lumbar spine. 2. Mild lower lumbar spondylosis. This document has been electronically signed by: Niko Marin MD on 07/01/2024 12:55:59 Assessment & Plan Assessment & Plan (1) Chronic low back pain: Code(s): M54.50 - Low back pain, unspecified; G89.29 - Other chronic pain Category: Medical Qualifiers: Back pain laterality: right Sciatica presence: with sciatica Sciatica laterality: sciatica of right side Qualified Code(s): M54.41 - Lumbago with sciatica, right side; G89.29 - Other chronic pain Plan: Chronic on and off right-sided back pain. I previously thought this is mostly SI joint dysfunction affecting also ITB and piriformis. Physical therapy has overall helped but not resolved issue. X-ray showed preserved disc spaces but mild foraminal stenosis on L5-S1? Patient had undergone adequate conservative management including PT without improvement of condition. It would be reasonable to obtain further imaging such as MRI. An MRI would help rule out any serious condition, guide treatment and assess prognosis for recovery. Specifically ruling out right L5-S1 disc hernia tion or nerve impingement. (2) Myofascial pain: Code(s): M79.18 - Myalgia, other site Category: Medical Plan: Right shoulder pain appears to come from upper trapezius tightness and trigger points. Do not see gideon signs of rotator cuff tear on exam. Recommend starting physical therapy for upper back/shoulder/trapezius after she finishes physical therapy for lower back. Order placed. If not improved, we could consider either trigger point injection to trapezius and/or steroid injection to shoulder. Right shoulder x-ray did show sclerosis in AC joint. Left shoulder x-ray was normal. (3) Carpal tunnel syndrome of right wrist: Code(s): G56.01 - Carpal tunnel syndrome, right upper limb Category: Medical Plan: Hand numbness, right side, upon waking up. She thinks she has history of Carpal Tunnel Syndrome although has not had any EMG. We will schedule EMG. Continue wearing wrist splints at night. Plan Assessment and plan discussed with patient, and patient was agreeable. All questions were answered thoroughly. I will see her during EMG and after MRI. Eleanor Kay MD, WILL Board Certified, [place] Board [employer] and Rehabilitation (ABPMR) Board Certified, [place] Board of Electrodiagnostic Medicine (ABEM) Orders: Orders PT Evaluation and Treatment Today M54.2 - Cervicalgia, M79.18 - Myalgia, other site NE electromyogram (EMG) Today G56.01 - Carpal tunnel syndrome, right upper limb NE nerve conduction velocity Today G56.01 - Carpal tunnel syndrome, right upper limb MR lumbar spine wo con Today G89.29 - Other chronic pain, M54.50 - Low back pain, unspecified Coding Level of Care Code Est Pt Level 4 (71187) Complex EM visit Add On G2211 Diagnoses Chronic right-sided low back pain with right-sided sciatica M54.41; G89.29 Back pain laterality: right Sciatica presence: with sciatica Sciatica laterality: sciatica of right side Myofascial pain M79.18 Carpal tunnel syndrome of right wrist G56.01
== END 2024-08-18 09:46 | disposition home or self-care (01) ==
LOC: HO.HOS 09:11
PROVIDERS: PCP Family Medicine; Visit Provider Physical Medicine & Rehabilitation
DX: M54.41 Lumbago with sciatica, right side (principal); G89.29 Other chronic pain; M79.18 Myalgia, other site; G56.01 Carpal tunnel syndrome, right upper limb
CPT/HCPCS: 99214

== ENCOUNTER 2024-08-21 07:03 | Outpatient (RCR) | payer OTHER, SELFPAY ==
--- NOTE | 2024-07-25 09:04 | MHC.PT.EP ---
[facility] [place] [facility] [place] [facility] [place] [facility] [address] Bebe Hua [address] [phone] F: [phone] F: [phone] F: [phone] F: [phone] Physical Therapy Plan of Care Date of Evaluation: 07/25/24 Date of Surgery: Diagnosis: sarcococcygeal disorder, lesion of sciatic nerve Assessment: 48 y/o female presents to PT with s/s consistent with lumbar derangement and instability resulting in pain and difficulty with prolonged standing, prolonged sitting, bending, sleeping, and lifting. Examination shows decreased lumbar ROM with no reversal of lordosis, decreased hip/core strength, pain, increased tissue tension paraspinals, and impaired postural awareness. Recommend PT 2x/week for 5 weeks to address impairments, implement HEP, and optimize functional mobility. 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 Manual therapy to restore motion and function. Therapeutic exercise to improve strength and flexibility. Neuromuscular re-education for posture and balance. Therapeutic activities to return to functional activities of daily living. Electronically signed by: Radha Driver PT Please sign and return to therapist. Thank you for your referral.
--- NOTE | 2024-09-26 13:56 | MHC.PT.DC ---
[facility] [place] Office [place] Office [place] Office [address] Bebe Hua 140 [facility] [phone] F: [phone] F: [phone] F: [phone] F: [phone] Physical Therapy Discharge Report Diagnosis: sarcococcygeal disorder, lesion of sciatic nerve Date of Surgery: Date of Evaluation: 07/25/24 Date of Discharge: 09/26/24 Treatments to Date: 4 Cancellations to Date: 2 No Shows to Date: 0 Discharge Status: Independent with HEP Discharge Summary: Pt made minimal progress with PT and needed cues for body mechanics and body positioning consistently. D/c at this time. Electronically signed by: Radha Driver PT Please sign and return to therapist. Thank you for your referral.
== END 2024-09-26 13:56 | disposition home or self-care (01) ==
LOC: HO.PT 07:03
PROVIDERS: PCP Family Medicine; Visit Provider Physical Medicine & Rehabilitation
DX: M53.3 Sacrococcygeal disorders, not elsewhere classified (principal); M76.31 Iliotibial band syndrome, right leg; G57.01 Lesion of sciatic nerve, right lower limb
CPT/HCPCS: 97112; 97140; 97161; 97530

== ENCOUNTER 2024-08-28 13:17 | Outpatient (AMB) | payer OTHER, SELFPAY ==
--- NOTE | 2024-08-28 13:13 | A.OFFPC_ITS ---
Intake Visit Reasons: Telehealth 2-3 wks labs review Intake Note: patient here for 2-3wks Telehealth for lab review House Wrecker Required: No Is last menstrual period known: Yes Last menstrual period: 08/07/24 Post menopausal: No Patient : No Allergies Penicillins Allergy (Verified 08/28/24 13:13) Rash Tobacco use date assessed: 08/28/24 Dental Screening Dental Screen Date: 08/28/24 Did you have a dental visit in the last 12 months?: Yes Did you have a dental problem in the last 6 months where you did not have access to dental care?: No Was dental information given to patient?: Patient has dentist HPI HPI Comments History of Present Illness Details 48-year-old female presents for [facility] for review of recent lab results. No acute symptoms at this time. [facility] Medical History (Updated 08/28/24 @ 13:39 by Jagdish Bucio CNP) Cyst of kidney, acquired Hx of migraine headaches Back disorder Arthritis Sinusitis FH: cholecystectomy Allergies Heartburn Surgical History (Updated 07/08/24 @ 00:02 by Amada Hannon) Hx laparoscopic cholecystectomy (01/13/24) Hx of esophagogastroduodenoscopy Family History (Updated 08/01/24 @ 08:49 by Racheal Patterson MA) Father Alcohol abuse Mother High blood pressure High cholesterol Social History (Updated 08/01/24 @ 08:42 by Racheal Patterson MA) Household Members: Family Housing: House Do you presently have visiting nurse or other home services: No Alcohol intake: current Alcohol intake frequency: holidays/special occasions only Patient Tobacco Use Status: Current everyday Tobacco user Tobacco use type: Cigarette Cigarettes Per Day: 10 e-Cigarette/Vaping Use: Never Used Second Hand Smoke Exposure: No Patient : No service: No Current occupational status: employed 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 Bebo Deutsch, Miranda Green, Alexis Vicente and colleagues, with an educational lashaun from [employer] Review of Systems Const Details: Denies chills, Denies fatigue, Denies fever(s), Denies headache(s) and Denies weakness Cardiac Denies chest pain, Denies claudication, Denies leg edema, Denies light headedness, Denies palpitations, Denies dyspnea, Denies dyspnea on exertion, Denies orthopnea and Denies other (Loss of consciousness) Resp Denies cough, Denies excessive phlegm production, Denies dyspnea, Denies dyspnea on exertion, Denies snoring and Denies wheezing Physical exam (Primary Care) Tobacco/Smoking Status: Tobacco use Status Tobacco use date assessed 08/28/24 08/28/24 13:14 Patient Tobacco Use Status Current everyday Tobacco 08/28/24 13:14 Tobacco use type Cigarette 08/28/24 13:14 e-Cigarette/Vaping Use Never Used 08/28/24 13:14 Thrive Assessment: Date of Thrive Assessment Date Thrive assessed 08/01/24 08/28/24 13:14 Telehealth Telehealth Telehealth Platform: Telephone Location of provider rendering services: practice address Location of patient: address on file Patient Identification confirmed using: Name, : Yes Telehealth method: voice only Patient verbally consented to treatment: Yes Patient verbally consented to billing insurance company: Yes Patient informed of any privacy concerns related to visit: Yes Coding Level of Care Code Tele Est Pt Level 3 (19390) Diagnoses Vitamin D deficiency E55.9 Elevated LDL cholesterol level E78.00 Assessment & Plan Assessment & Plan (1) Vitamin D deficiency: Code(s): E55.9 - Vitamin D deficiency, unspecified Category: Medical Plan: Recent vitamin-D level is slightly low, 23.5. Vitamin D3 1000 units daily ordered; advised to take as prescribed. Informed that the sun is a good source of vitamin-D. Before vitamin-D blood work 2-3 days before next visit. Follow-up for telehealth visit in 8 weeks or sooner with symptoms or concerns. Verbalized understanding and agreed with the plan. (2) Elevated LDL cholesterol level: Code(s): E78.00 - Pure hypercholesterolemia, unspecified Category: Medical Plan: Recent LDL is slightly elevated, 101, triglycerides, total cholesterol, and HDL levels are normal. Advise to limit foods high in saturated fat and avoid foods high in trans fat. Routine exercise encouraged. Will monitor lipid panel level periodically. Verbalized understanding and agrees with the plan. Orders: Orders Vitamin D 25-OH Total 8 Weeks E55.9 - Vitamin D deficiency, unspecified Medications: New cholecalciferol (vitamin D3) 25 mcg PO DAILY 30 tabs 3RF 30 days
== END 2024-08-28 14:00 | disposition home or self-care (01) ==
LOC: HO.HMCFM 13:17
PROVIDERS: Visit Provider Nurse Practitioner Family
DX: E55.9 Vitamin D deficiency, unspecified (principal); E78.00 Pure hypercholesterolemia, unspecified

== ENCOUNTER → 2024-08-28 13:17 | Outpatient (BNVA) | payer OTHER, SELFPAY | PROVIDERS: Visit Provider Nurse Practitioner Family | DX: E55.9 Vitamin D deficiency, unspecified (principal); E78.00 Pure hypercholesterolemia, unspecified | CPT/HCPCS: 98966 ==

== ENCOUNTER 2024-09-02 14:11 | Outpatient (REF) | payer OTHER, SELFPAY ==
--- NOTE | ~2024-09-02 | MR_ITS ---
CLINICAL HISTORY: M54.50 - Low back pain, unspecified --- Additional Notes or Special Instructions: evaluate for right L5-S1 disc herniation or nerve impingement MR lumbar spine without gadolinium Comparison: None Findings: Normal alignment. No acute fracture or pathologic bone lesion. Cauda equina and conus medullaris within normal limits. Paraspinous musculature intact. Retroperitoneal structures visualized are unremarkable. Individual levels: T11-L4: No central canal stenosis or neural foraminal narrowing. L4-L5: Small posterior disc protrusion with moderate left neural foraminal narrowing. No central canal stenosis. L5-S1: No significant central canal stenosis or neural foraminal narrowing. IMPRESSION: Mild degenerative changes at L4-L5 as detailed. This document has been electronically signed by: Yohannes Moyer MD on 09/05/2024 12:36:13
== END 2024-09-02 14:12 | disposition home or self-care (01) ==
LOC: HO.MRI 14:11
PROVIDERS: PCP Nurse Practitioner Family; Visit Provider Physical Medicine & Rehabilitation
DX: M54.50 Low back pain, unspecified (principal); G89.29 Other chronic pain
CPT/HCPCS: 72148

== ENCOUNTER → 2024-09-02 14:24 | Outpatient (BNV) | payer OTHER, SELFPAY | PROVIDERS: PCP Nurse Practitioner Family; Visit Provider Radiology Vascular & Interventional Radiology | DX: M54.50 Low back pain, unspecified (principal) | CPT/HCPCS: 72148 ==

== ENCOUNTER 2024-09-22 08:31 | Outpatient (AMB) | payer OTHER, SELFPAY ==
--- NOTE | 2024-09-22 08:38 | MHC.OFFVIS ---
Intake Visit Reasons: OV- MRI Review Intake Note: Leigh Ann is a 48 year old female who presents today for a follow up MRI Review, 09/05/24. At last visit 08/18/24 we discussed to continue wearing wrist splints at night and that we would possibly consider either trigger point injection to trapezius and/or steroid injection to shoulder. At today's visit she states that she would like to discuss getting the injection but had questions. She states that she stopped wearing the brace. Patient added that she completed her back physical therapy but did not make an appointment for her shoulder. Allergies Penicillins Allergy (Verified 09/22/24 08:41) Rash Medication List - Last Reconciled 09/22/24 by Eleanor Kay MD cholecalciferol (vitamin D3) 25 mcg PO DAILY 30 days cyclobenzaprine 5 mg PO BEDTIME PRN HPI Comments Details: Chronic intermittent pain which has been ongoing at least since February. Lower back, usually more right side, all the way down to leg, sometimes both sides but mostly right side. Feels like sciatica on right leg or spasms in the back. Pins/needles mostly right leg, sometimes left leg. She thinks left sided symptoms are because she had fallen on left side. No foot drop. Does feel legs are weaker. Last major back issue 3 years, treated with oral steroid and PT. No MRI done. She was good for almost 3 years until onset in February 2024. This February, she feels it was associated with pushing beds/stretchers. Then she did fall on left side. Problems with legs since childhood, born breech. 1. back pain - right sided, we thought was SI, ITB, trochanter - PT finished without much relief, doing the exercises that help. Described as uncomfortable. Usually 3/10. Last week it was more severe, across the back, still mostly the right but can go both sides when severe. Xray showed preserved disc spaces; facet arthrosis. Flexeril as needed, qhs when not working, helps. No side effects. Today to discuss MRI findings. 2. shoulder pain - right worse than left xray did show mild sclerosis on AC on right; normal left Denies injury. Chronic recurrent. Been worse the past few months. Pain with overhead activities, limited ROM due to pain. Right handed. Have not been able to start PT for shoulder yet. Usually 4/10, feels the pressure, ROM limited by pain and gets numb only if holding up overhead. 3. She also mentions waking up with numbness on right arm. Admits history of CTS. Has been wearing wrist braces. EMG scheduled. [facility] Medical History (Updated 09/22/24 @ 10:51 by Eleanor Kay MD) Cyst of kidney, acquired Hx of migraine headaches Back disorder Arthritis Sinusitis FH: cholecystectomy Allergies Heartburn Surgical History (Updated 07/08/24 @ 00:02 by Amada Hannon) Hx laparoscopic cholecystectomy (01/13/24) Hx of esophagogastroduodenoscopy Family History (Updated 08/01/24 @ 08:49 by Racheal Patterson MA) Father Alcohol abuse Mother High blood pressure High cholesterol Social History (Updated 08/01/24 @ 08:42 by Racheal Patterson MA) Household Members: Family Housing: House Do you presently have visiting nurse or other home services: No Alcohol intake: current Alcohol intake frequency: holidays/special occasions only Patient Tobacco Use Status: Current everyday Tobacco user Tobacco use type: Cigarette Cigarettes Per Day: 10 e-Cigarette/Vaping Use: Never Used Second Hand Smoke Exposure: No service: No Current occupational status: employed 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 Patient was appropriately conversant and oriented. Good historian. MSK: No specific abnormalities found on inspection of the spine and all extremities. Lumbar range of motion within normal but increased pain with lumbar extension. Right SI joint is tender, less tender on left SI joint. Gillet test shows stiffness on right SI joint. CANDI test positive on right. Tender and tight on right upper trapezius. Full shoulder range of motion although with pain on abduction and forward flexion. Mildly positive right empty can sign, but pointing to trapezius as source of pain. Negative speed's test. Strength is 5/5 in all muscle groups tested. No increased tone noted. Neurological: Neurologic examination of the upper and lower extremities was nonfocal with intact sensation, muscle stretch reflexes and without focal motor deficits . Gait is non-antalgic without loss of balance. Office Procedures Therapeutic Injection Therapeutic Injection Details: Trigger point injection, right upper trapezius. Consent obtained. 2 trigger points palpated on right upper trapezius. Area cleansed with Betadine. Needling performed with gauge 27 needle, subsequently injecting 1 ml of 2% Lidocaine on each site, total of 2 mL. Patient tolerated procedure well. Post-injection instructions given. 90782-Ithbfpz Point Injection 1 or 2 sites All charges added?: Procedure code (CPT) selection complete Results Reviewed Results Reviewed: Ordering Physician: Eleanor Munroe Date of Service: 09/02/24 Procedure(s): MR lumbar spine wo con Accession Number(s): [id number] cc: Eleanor Munroe; Jagdish Bucio RESEARCH & ANALYTICS MANAGER~ CLINICAL HISTORY: M54.50 - Low back pain, unspecified --- Additional Notes or Special Instructions: evaluate for right L5-S1 disc herniation or nerve impingement MR lumbar spine without gadolinium Comparison: None Findings: Normal alignment. No acute fracture or pathologic bone lesion. Cauda equina and conus medullaris within normal limits. Paraspinous musculature intact. Retroperitoneal structures visualized are unremarkable. Individual levels: T11-L4: No central canal stenosis or neural foraminal narrowing. L4-L5: Small posterior disc protrusion with moderate left neural foraminal narrowing. No central canal stenosis. L5-S1: No significant central canal stenosis or neural foraminal narrowing. IMPRESSION: Mild degenerative changes at L4-L5 as detailed. This document has been electronically signed by: Yohannes Moyer MD on 09/05/2024 12:36:13 Assessment & Plan Assessment & Plan (1) Sacroiliac joint dysfunction of both sides: Code(s): M53.3 - Sacrococcygeal disorders, not elsewhere classified Category: Medical Plan: I still think most of her pain is primarily coming from right SI joint dysfunction. We discussed benefits and risks of trying injections. Patient is being referred to pain management for trial of SI joint injection under fluoroscopy or ultrasound. (2) Lumbar disc herniation: Code(s): M51.26 - Other intervertebral disc displacement, lumbar region Category: Medical Plan: We looked at lumbar MRI images together. There is a small disc protrusion but going more left side rather than right. Her pain is mostly right side and would only go to the left when really severe. She does not have signs of lumbar radiculopathy. (3) Myofascial pain: Code(s): M79.18 - Myalgia, other site Category: Medical Plan: Right shoulder pain appears to come from upper trapezius tightness and trigger points. We discussed benefits and risks of trying trigger point injections. Patient on to proceed. Patient tolerated procedure well. We will do 2 more, 1 week apart. (4) Carpal tunnel syndrome of right wrist: Code(s): G56.01 - Carpal tunnel syndrome, right upper limb Category: Medical Plan: Hand numbness, right side, upon waking up. She thinks she has history of Carpal Tunnel Syndrome although has not had any EMG. EMG scheduled. Continue wearing wrist splints at night. Plan Assessment and plan discussed with patient, and patient was agreeable. All questions were answered thoroughly. I will see her during EMG and after injection. Eleanor Kay MD, WILL Board Certified, [place] Board of Physical Medicine and Rehabilitation (ABPMR) Board Certified, [place] Board [employer] Electrodiagnostic Medicine (ABEM) Orders: Orders AMB Trigger Point Injection Today M79.18 - Myalgia, other site Referrals Pain Management Referral M53.3 - Sacrococcygeal disorders, not elsewhere classified Coding Level of Care Code Est Pt Level 4 (55060) Diagnoses Sacroiliac joint dysfunction of both sides M53.3 Lumbar disc herniation M51.26 Myofascial pain M79.18 Carpal tunnel syndrome of right wrist G56.01 CPT Codes Therapeutic Injection - Ther Injection 1: 12047-Wdgegha Point Injection 1 or 2 sites ([id number])
== END 2024-09-22 09:20 | disposition home or self-care (01) ==
LOC: HO.HOS 08:32
PROVIDERS: PCP Family Medicine; Visit Provider Physical Medicine & Rehabilitation
DX: M53.3 Sacrococcygeal disorders, not elsewhere classified (principal); M51.26 Other intervertebral disc displacement, lumbar region; M79.18 Myalgia, other site; G56.01 Carpal tunnel syndrome, right upper limb
CPT/HCPCS: 20552; 99214

== ENCOUNTER → 2024-09-22 08:31 | Outpatient (BNVA) | payer OTHER, SELFPAY | PROVIDERS: PCP Family Medicine; Visit Provider Physical Medicine & Rehabilitation | DX: M79.18 Myalgia, other site (principal) | CPT/HCPCS: 20552; J2003 ==

== ENCOUNTER 2024-09-29 11:51 | Outpatient (AMB) | payer OTHER, SELFPAY ==
[2024-09-29 11:53] VITALS: BMI 33.4
--- NOTE | 2024-09-29 11:53 | A.OFFVIS_ITS ---
Vital Signs 09/29/24 11:53 Height 5 ft 9 in Weight 226 lb BMI 33.4 Intake Visit Reasons: INJ-TPI#2 Intake Note: Leigh Ann is a 49 year old female who presents today for her Trigger Point Injection #2 for the right shoulder pain. At last visit on 09/22/24 we discussed to schedule a EMG, referral to pain management and to wear the brace. Patient states she feel less tension and less stiffness on her right shoulder Allergies Penicillins Allergy (Verified 09/29/24 11:57) Rash Medication List - Last Reconciled 09/29/24 by Eleanor Kay MD cholecalciferol (vitamin D3) 25 mcg PO DAILY 30 days cyclobenzaprine 5 mg PO BEDTIME PRN HPI Comments Details: [place] improvement after last week's injection PFSH Medical History (Updated 09/22/24 @ 10:51 by Eleanor Kay MD) Cyst of kidney, acquired Hx of migraine headaches Back disorder Arthritis Sinusitis FH: cholecystectomy Allergies Heartburn Surgical History Hx laparoscopic cholecystectomy (01/13/24) Hx of esophagogastroduodenoscopy Family History (Updated 08/01/24 @ 08:49 by Racheal Patterson MA) Father Alcohol abuse Mother High blood pressure High cholesterol Social History Household Members: Family Housing: House Do you presently have visiting nurse or other home services: No Alcohol intake: current Alcohol intake frequency: holidays/special occasions only Patient Tobacco Use Status: Current everyday Tobacco user Tobacco use type: Cigarette Cigarettes Per Day: 10 e-Cigarette/Vaping Use: Never Used Second Hand Smoke Exposure: No service: No Current occupational status: employed 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 Consent obtained. 2 trigger points palpated on right upper trapezius. Area cleansed with Betadine. Needling performed with gauge 27 needle, subsequently injecting 1 ml of 2% Lidocaine on each site, total of 2 mL. Patient tolerated procedure well. Post-injection instructions given. 42111-Qxdhigo Point Injection 1 or 2 sites All charges added?: Procedure code (CPT) selection complete Assessment & Plan Assessment & Plan (1) Myofascial pain: Code(s): M79.18 - Myalgia, other site Category: Medical Plan Tolerated procedure well. Assessment and plan discussed with patient, and patient was agreeable. All ques tions were answered thoroughly. Eleanor Kay MD, WILL Board Certified, [place] Board of Physical Medicine and Rehabilitation (ABPMR) Board Certified, [place] Board of Electrodiagnostic Medicine (ABEM) Orders: Orders AMB Trigger Point Injection Today M79.18 - Myalgia, other site Coding Level of Care Code Procedure Only Diagnoses Myofascial pain M79.18 CPT Codes Therapeutic Injection - Ther Injection 1: 92829-Yonsksf Point Injection 1 or 2 sites ([id number])
== END 2024-09-29 12:16 | disposition home or self-care (01) ==
LOC: HO.HOS 11:52
PROVIDERS: PCP Family Medicine; Visit Provider Physical Medicine & Rehabilitation
DX: M79.18 Myalgia, other site (principal)
CPT/HCPCS: 20552

== ENCOUNTER → 2024-09-29 11:51 | Outpatient (BNVA) | payer OTHER, SELFPAY | PROVIDERS: PCP Family Medicine; Visit Provider Physical Medicine & Rehabilitation | DX: M25.511 Pain in right shoulder (principal); M79.18 Myalgia, other site | CPT/HCPCS: 20552; J2003 ==

== ENCOUNTER 2024-10-05 09:10 | Outpatient (AMB) | payer OTHER, SELFPAY ==
--- NOTE | 2024-10-05 09:16 | A.OFFVIS_ITS ---
Intake Visit Reasons: INJ- Trigger Point Injection #3 Intake Note: Leigh Ann is a 49 year old female who presents today for her Trigger Point Injection #3. At today's visit she states that the injection made her right shoulder and neck feel very sore. Patient states that since her last visit her right side of her neck feels like it has a Knot . She states that she does do at home exercises to help with the pain. Allergies Penicillins Allergy (Verified 10/05/24 09:19) Rash PFSH Medical History (Updated 09/22/24 @ 10:51 by Eleanor Kay MD) Cyst of kidney, acquired Hx of migraine headaches Back disorder Arthritis Sinusitis FH: cholecystectomy Allergies Heartburn Surgical History Hx laparoscopic cholecystectomy (01/13/24) Hx of esophagogastroduodenoscopy Family History (Updated 08/01/24 @ 08:49 by Racheal Patterson MA) Father Alcohol abuse Mother High blood pressure High cholesterol Social History Household Members: Family Housing: House Do you presently have visiting nurse or other home services: No Alcohol intake: current Alcohol intake frequency: holidays/special occasions only Patient Tobacco Use Status: Current everyday Tobacco user Tobacco use type: Cigarette Cigarettes Per Day: 10 e-Cigarette/Vaping Use: Never Used Second Hand Smoke Exposure: No service: No Current occupational status: employed 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 Consent obtained. Right upper trapezius feels much less tight as compared to when if her saw her. But it is still the area where she is most sore. Area cleansed with Betadine. Needling performed with gauge 27 needle, subsequently injecting 1 ml of 2% Lidocaine on right upper trapezius. Patient tolerated procedure well. Post-injection instructions given. 30177-Yazyflw Point Injection 1 or 2 sites All charges added?: Procedure code (CPT) selection complete Assessment & Plan Assessment & Plan (1) Myofascial pain: Code(s): M79.18 - Myalgia, other site Category: Medical Plan Tolerated procedure well. We have an EMG scheduled in 2 weeks. Follow up in 6 weeks. Assessment and plan discussed with patient, and patient was agreeable. All questions were answered thoroughly. Eleanor Kay MD, WILL Board Certified, [place] Board [employer] Medicine and Rehabilitation (ABPMR) Board Certified, [place] Board of Electrodiagnostic Medicine (ABEM) Orders: Orders AMB Trigger Point Injection Today M79.18 - Myalgia, other site Coding Level of Care Code Procedure Only Diagnoses Myofascial pain M79.18 CPT Codes Therapeutic Injection - Ther Injection 1: 81265-Zytmmdm Point Injection 1 or 2 sites ([id number])
== END 2024-10-05 09:36 | disposition home or self-care (01) ==
PROVIDERS: PCP Family Medicine; Visit Provider Physical Medicine & Rehabilitation
DX: M79.18 Myalgia, other site (principal)
CPT/HCPCS: 20552

== ENCOUNTER → 2024-10-05 09:10 | Outpatient (BNVA) | payer OTHER, SELFPAY | PROVIDERS: PCP Family Medicine; Visit Provider Physical Medicine & Rehabilitation | DX: M79.12 Myalgia of auxiliary muscles, head and neck (principal) | CPT/HCPCS: 20552; J2003 ==

== ENCOUNTER 2024-10-18 09:31 | Outpatient (REF) | payer OTHER, SELFPAY ==
--- NOTE | 2024-10-18 09:34 | EMG_ITS ---
Chief complaint: Nighttime hand numbness Reason for referral: Evaluate for Carpal Tunnel Syndrome Procedure done: Right upper extremity NCS/EMG Precautions and/or limitations: None The limb temperature was monitored continuously and remained between 32-36 degrees C during the performance of the NCS. Nerve Conduction Studies Anti Sensory Summary Table ?Stim Site NR Onset (ms) Norm Onset (ms) Peak (ms) Norm Peak (ms) O-P Amp (?V) Norm O-P Amp Site1 Site2 Delta-0 (ms) Dist (cm) Dangelo (m/s) Norm Dangelo (m/s) Right Median Anti Sensory (2nd Digit) Wrist ? 2.5 3.3 <3.6 31.6 >10 Wrist 2nd Digit 2.5 14.0 56 Right Ulnar Anti Sensory (5th Digit) Wrist ? 2.3 2.9 <3.7 28.7 >15.0 Wrist 5th Digit 2.3 14.0 61 Motor Summary Table ?Stim Site NR Onset (ms) Norm Onset (ms) O-P Amp (mV) Norm O-P Amp iAmp (mV) Amp (1st) (%) Site1 Site2 Delta-0 (ms) Dist (cm) Dangelo (m/s) Norm Dangelo (m/s) Right Median Motor (Abd Poll Brev) Wrist ? 3.8 <3.9 6.0 >4.5 7.0 100.0 Elbow Wrist 3.8 21.0 55 >45 Elbow ? 7.6 5.7 6.4 95.0 Right Ulnar Motor (Abd Dig Minimi) Wrist ? 2.7 <3.0 6.6 >5 8.4 100.0 B Elbow Wrist 3.0 18.0 60 >45 B Elbow ? 5.7 6.8 8.6 103.0 A Elbow B Elbow 1.2 10.0 83 >45 A Elbow ? 6.9 6.6 8.3 100.0 Comparison Summary Table ?Stim Site NR Peak (ms) Norm Peak (ms) P-T Amp (?V) Site1 Site2 Delta-P (ms) Norm Delta (ms) Right Median/Radial Dig I Comparison (Digit 1 - 10cm) Median ? 2.4 <2.9 140.3 Median Radial 0.2 Radial ? 2.2 <2.8 13.4 EMG ?Side Muscle Nerve Root Ins Act Fibs Psw Amp Dur Poly Recrt Int Pat Comment Right 1stDorInt Ulnar C8-T1 Nml Nml Nml Nml Nml 0 Nml Complete Right FlexCarRad Median C6-7 Nml Nml Nml Nml Nml 0 Nml Complete Right Biceps Musculocut C5-6 Nml Nml Nml Nml Nml 0 Nml Complete Right Triceps Radial C6-7-8 Nml Nml Nml Nml Nml 0 Nml Complete Right Deltoid Axillary C5-6 Nml Nml Nml Nml Nml 0 Nml Complete Paraspinal EMG ?Side Muscle Nerve Root Ins Act Fibs Psw Comment Right Cervical Upper Rami Nml Nml Nml Right Cervical Mid Rami Nml Nml Nml Right Cervical Lower Rami Nml Nml Nml FINDINGS: All motor and sensory nerves tested showed normal latencies, amplitudes and conduction velocities. Concentric needle EMG was performed in selected muscles of the right upper extremity and cervical paraspinals. Study did not reveal signs of electric abnormalities as shown in the table above. IMPRESSION: 1. This is a normal study. 2. There is no electrodiagnostic evidence for median neuropathy, ulnar neuropathy, brachial plexopathy, or cervical radiculopathy. Thank you for your kind referral. Eleanor Kay MD, WILL Board Certified, [place] Board of Physical Medicine and Rehabilitation (ABPMR) Board Certified, [place] Board of Electrodiagnostic Medicine (ABEM) [place] [id number] [facility]
== END 2024-10-18 09:32 | disposition home or self-care (01) ==
LOC: HO.NEURO 09:31
PROVIDERS: PCP Family Medicine; Visit Provider Physical Medicine & Rehabilitation
DX: G56.01 Carpal tunnel syndrome, right upper limb (principal)
CPT/HCPCS: 95886; 95909

== ENCOUNTER → 2024-10-18 09:34 | Outpatient (BNV) | payer OTHER, SELFPAY | PROVIDERS: PCP Family Medicine; Visit Provider Physical Medicine & Rehabilitation | DX: R20.0 Anesthesia of skin (principal); R20.2 Paresthesia of skin | CPT/HCPCS: 95886; 95909 ==

== ENCOUNTER 2024-11-23 09:08 | Outpatient (AMB) | payer OTHER, SELFPAY ==
--- NOTE | 2024-11-23 09:13 | MHC.OFFVIS ---
Vital Signs 11/23/24 09:17 Height 5 ft 9 in Intake Visit Reasons: OV- follow up from last Trigger Point INJ 10/05/24 Intake Note: Leigh Ann is a 49 year old female who presents today as a follow up from her last Trigger Point Injection, 10/05/24. Patient states that the last injection did give some relief but wore off. Allergies Penicillins Allergy (Verified 11/23/24 09:16) Rash Medication List - Last Reconciled 11/23/24 by Eleanor Kay MD cholecalciferol (vitamin D3) 25 mcg PO DAILY 30 days cyclobenzaprine 5 mg PO BEDTIME PRN HPI Comments Details: She says that her pain improved with trigger point injection but it returned, but when I asked her to point where pain is, she pointed to left side. Occasional dull pain to arms, tingling feeling, not constant. [facility] Medical History (Updated 09/22/24 @ 10:51 by Eleanor Kay MD) Cyst of kidney, acquired Hx of migraine headaches Back disorder Arthritis Sinusitis FH: cholecystectomy Allergies Heartburn Surgical History Hx laparoscopic cholecystectomy (01/13/24) Hx of esophagogastroduodenoscopy Family History (Updated 08/01/24 @ 08:49 by Racheal Patterson MA) Father Alcohol abuse Mother High blood pressure High cholesterol Social History Household Members: Family Housing: House Do you presently have visiting nurse or other home services: No Alcohol intake: current Alcohol intake frequency: holidays/special occasions only Patient Tobacco Use Status: Current everyday Tobacco user Tobacco use type: Cigarette Cigarettes Per Day: 10 e-Cigarette/Vaping Use: Never Used Second Hand Smoke Exposure: No service: No Current occupational status: employed 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 Patient was appropriately conversant and oriented. Good historian. MSK: Milder tenderness on bilateral upper trapezius. No focal trigger points noted. Full shoulder range of motion although with pain on abduction and forward flexion. Strength is 5/5 in all muscle groups tested. No increased tone noted. Neurological: Neurologic examination of the upper and lower extremities was nonfocal with intact sensation, muscle stretch reflexes and without focal motor deficits . Gait is non-antalgic without loss of balance. Results Reviewed Results Reviewed: Ordering Physician: Eleanor Munroe Date of Service: 09/02/24 Procedure(s): MR lumbar spine wo con Accession Number(s): [id number] cc: Eleanor Munroe; Jagdish Bucio LABOR RELATIONS SUPERVISOR~ CLINICAL HISTORY: M54.50 - Low back pain, unspecified --- Additional Notes or Special Instructions: evaluate for right L5-S1 disc herniation or nerve impingement MR lumbar spine without gadolinium Comparison: None Findings: Normal alignment. No acute fracture or pathologic bone lesion. Cauda equina and conus medullaris within normal limits. Paraspinous musculature intact. Retroperitoneal structures visualized are unremarkable. Individual levels: T11-L4: No central canal stenosis or neural foraminal narrowing. L4-L5: Small posterior disc protrusion with moderate left neural foraminal narrowing. No central canal stenosis. L5-S1: No significant central canal stenosis or neural foraminal narrowing. IMPRESSION: Mild degenerative changes at L4-L5 as detailed. This document has been electronically signed by: Yohannes Moyer MD on 09/05/2024 12:36:13 Assessment & Plan Assessment & Plan (1) Sacroiliac joint dysfunction of both sides: Code(s): M53.3 - Sacrococcygeal disorders, not elsewhere classified Category: Medical Plan: I still think most of her pain is primarily coming from right SI joint dysfunction. We discussed benefits and risks of trying injections. Patient is being referred to pain management for trial of SI joint injection under fluoroscopy or ultrasound. (2) Myofascial pain: Code(s): M79.18 - Myalgia, other site Category: Medical Plan: Right shoulder pain appears to come from upper trapezius tightness and trigger points. We discussed benefits and risks of trying trigger point injections. Right side improved with trigger-point injection. Plan 1. Right side improved with trigger-point injection. But complaining of left-sided pain this time. Still continues to complain of paresthesias in right arm. We will send for cervical spine x-ray today. If there is any disc space narrowing, we will consider further imaging such as MRI. Patient would like to schedule further trigger point injections. 2. Waiting for SI joint injection under pain management, already scheduled. Assessment and plan discussed with patient, and patient was agreeable. All questions were answered thoroughly. I will see her during EMG and after injection. Eleanor Kay MD, WILL Board Certified, [place] Board of Physical Medicine and Rehabilitation (ABPMR) Board Certified, [place] Board of Electrodiagnostic Medicine (ABEM) Orders: Orders XR cervical spine 3V 11/23/24 M54.2 - Cervicalgia Coding Level of Care Code Est Pt Level 4 (07187) Diagnoses Sacroiliac joint dysfunction of both sides M53.3 Myofascial pain M79.18
== END 2024-11-23 09:54 | disposition home or self-care (01) ==
LOC: HO.HOS 09:09
PROVIDERS: PCP Family Medicine; Visit Provider Physical Medicine & Rehabilitation
DX: M53.3 Sacrococcygeal disorders, not elsewhere classified (principal); M79.18 Myalgia, other site
CPT/HCPCS: 99213

== ENCOUNTER 2024-11-28 06:13 | Outpatient (REF) | payer OTHER, SELFPAY ==
--- NOTE | ~2024-11-28 | FL_ITS ---
EXAMINATION: FL GUIDANCE ONLY HISTORY: M53.3 - Sacrococcygeal disorders, not elsewhere classified COMPARISON: None available. TECHNIQUE: Fluoroscopy time: 6.5 seconds. Cumulative Dose: 1.33 mGy. Images: 1. FINDINGS: A single fluoroscopic spot film of the right hemipelvis demonstrates a needle and contrast material in the region of the sacroiliac joint. FL/FL guidance in treatment room IMPRESSION: Fluoroscopy during procedure. Please see procedure report for additional information. Electronically signed by: Bebo Garcia MD 11/28/2024 12:59 PM EDT
== END 2024-11-28 06:14 | disposition home or self-care (01) ==
LOC: CF 06:13
PROVIDERS: Visit Provider Anesthesiology
DX: M53.3 Sacrococcygeal disorders, not elsewhere classified (principal); M46.1 Sacroiliitis, not elsewhere classified
CPT/HCPCS: 27096; J2003; J2795; Q9967

== ENCOUNTER 2024-11-28 08:31 | Outpatient (AMB) | payer OTHER, SELFPAY ==
[2024-11-28 08:36] VITALS: BP 107/66; PULSE 69; RESP 16; O2SAT 99
--- NOTE | 2024-11-28 08:36 | MHC.OFFVIS ---
Vital Signs 11/28/24 08:36 11/28/24 08:51 BP 107/66 102/63 Blood Pressure Location Lt brachial Lt brachial Position Sitting Sitting Respiration 16 16 Pulse 69 67 Pulse Source Pulse Oximeter Pulse Oximeter Pulse Oximetry (%) 99 100 Oxygen Delivery Method Room Air Room Air Intake Visit Reasons: Right DX SIJ Injection Delivery Representative Required: No Allergies Penicillins Allergy (Verified 11/28/24 08:36) Rash Medication List - Last Reconciled 11/28/24 by Bettie Green LPN cholecalciferol (vitamin D3) 25 mcg PO DAILY 30 days cyclobenzaprine 5 mg PO BEDTIME PRN PFSH Medical History (Updated 11/28/24 @ 12:31 by Darius Hernández MD) Cyst of kidney, acquired Hx of migraine headaches Back disorder Arthritis Sinusitis FH: cholecystectomy Allergies Heartburn Surgical History Hx laparoscopic cholecystectomy (01/13/24) Hx of esophagogastroduodenoscopy Family History (Updated 08/01/24 @ 08:49 by Racheal Patterson MA) Father Alcohol abuse Mother High blood pressure High cholesterol Social History Household Members: Family Housing: House Do you presently have visiting nurse or other home services: No Alcohol intake: current Alcohol intake frequency: holidays/special occasions only Patient Tobacco Use Status: Current everyday Tobacco user Tobacco use type: Cigarette Cigarettes Per Day: 10 e-Cigarette/Vaping Use: Never Used Second Hand Smoke Exposure: No service: No Current occupational status: employed 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 Current occupational exposures/hazards: Yes Cognitive needs: No Hearing needs: No Vision needs: Yes Physical Exam Vital Signs: Last Vital Signs Pulse 67 11/28/24 08:51 Resp 16 11/28/24 08:51 BP 102/63 11/28/24 08:51 Pulse Ox 100 11/28/24 08:51 Oxygen Delivery Method Room Air 11/28/24 08:51 Assessment & Plan Assessment & Plan (1) Sacroiliac joint dysfunction of both sides: Code(s): M53.3 - Sacrococcygeal disorders, not elsewhere classified Category: Medical (2) Sacroiliitis: Code(s): M46.1 - Sacroiliitis, not elsewhere classified Category: Medical Plan Sacroiliac joint injection diagnostic right. Informed consent was explained thoroughly to the patient.? All questions about benefits and risks for the procedure were answered. Patient came to the operating room and was positioned prone on the operating table with the pillow under the abdomen.? The lower back and buttocks of the patient were prepped with ChloraPrep prepped and draped with sterile utility towels.? Sterilely draped C-arm was brought over the operating field and sq picture of patient's pelvis was demonstrated on the screen.? For the right joint tilting C-arm contralateral to the site of the joint the most posterior portion of the joints was superimposed with anterior silhouette of the joint.? Skin was injected in the projection of the joint slightly medial to the location of the joint with 25 gauge 1/2 inch needle using local lidocaine 2% mixed with ropivacaine 0.5% one to one. After that 22 gauge 3 and 1/2 inch needle was driven to the right joint in tunnel vision fashion.? When needle entered the joint capsule injection of the contrast was performed demonstrating intra-articular and minimally periarticular spread of the contrast.? After that 5 cc. of ropivacaine 0.5% was injected into the joint. (the patient is diabetic and does not have blood sugar machine at home.)? Total dose of Kenalog was 40 mg. Upon completion of the injections the needles were removed, Band-Aids were applied.? Upon completion of the injection patient was taken outside of the operating room to the recovery room where recovered uneventfully. Orders: Orders FL guidance in treatment room Today M53.3 - Sacrococcygeal disorders, not elsewhere classified Coding Level of Care Code Procedure Only Diagnoses Sacroiliac joint dysfunction of both sides M53.3 Sacroiliitis M46.1
[2024-11-28 08:51] VITALS: BP 102/63; PULSE 67; RESP 16; O2SAT 100
== END 2024-11-28 09:39 | disposition home or self-care (01) ==
LOC: HO.PMCPRC 08:31
PROVIDERS: PCP Family Medicine; Visit Provider Anesthesiology
DX: M53.3 Sacrococcygeal disorders, not elsewhere classified (principal); M46.1 Sacroiliitis, not elsewhere classified
CPT/HCPCS: 27096

== ENCOUNTER 2024-11-30 08:56 | Outpatient (AMB) | payer OTHER, SELFPAY ==
--- NOTE | 2024-11-30 08:58 | MHC.OFFVIS ---
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 She reports the pain is more to the right as well. She reported that this pain started 3 years ago. She went for evaluation to Dr. Munroe and sacroiliac joint pathology was suggested. She was [facility] to [facility] for [facility]ac [facility] diagnostic. She is here in my office to discuss results of the sacroiliac joint injection. Because of her pain she can not sleep normally she can not do activities of daily living and full extent, but she can take care of herself and she is able to function normally. She is working full-time. Weather changes in movements aggravate her pain and heat applications oral medications and topical medication slightly improve her pain. In terms of tissue damage he describes her pain as pulsing and pounding, tugging and wrenching, tingling and stinging, dull hurting and heavy, tiring and exhausting, spreading radiating and piercing. She had MRI of the lumbar spine results of which dictated as below. She did not have any she had 12 sessions of physical therapy with no effect she continues to do home exercise program to improve muscle function. She received from [facility] diagnostic right sacroiliac joint injection. No past medical history, past surgical history: Gallbladder 12/2023, she admits smoking 6-7 cigarettes a day, I recommended her to stop as soon as possible, she drinks 2 glasses of wine twice a month. She drinks 2 coffees a day she denies recreational drugs. Results of the sacroiliac joint injection. She reports pain before the procedure 08/31. She reports pain immediately after the procedure 04/03. She was performing yard work, she was doing I aerobic exercises, she was taking care of the kitchen washing dishes all this activities would usually aggravate her pain and bring her to 8-9/10. She felt for entire day pain at 2/10. It was at least 80% pain reduction. At night when her local anesthetic was warned off she started to feel more pain however her pain still was rather mild, she would report that after day of the activities described above her pain would be 9/10. Therefore I consider diagnostic sacroiliac joint injection as an indicator for her condition to be sacroiliitis and right sacroiliac joint dysfunction. [facility] Medical History (Updated 11/30/24 @ 09:31 by Darius Hernández MD) Cyst of kidney, acquired Hx of migraine headaches Back disorder Arthritis Sinusitis FH: cholecystectomy Allergies Heartburn Surgical History Hx laparoscopic cholecystectomy (01/13/24) Hx of esophagogastroduodenoscopy Family History (Updated 08/01/24 @ 08:49 by Racheal Patterson MA) Father Alcohol abuse Mother High blood pressure High cholesterol Social History Household Members: Family Housing: House Do you presently have visiting nurse or other home services: No Alcohol intake: current Alcohol intake frequency: holidays/special occasions only Patient Tobacco Use Status: Current everyday Tobacco user Tobacco use type: Cigarette Cigarettes Per Day: 10 e-Cigarette/Vaping Use: Never Used Second Hand Smoke Exposure: No service: No Current occupational status: employed 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 Current occupational exposures/hazards: Yes Cognitive needs: No Hearing needs: No Vision needs: Yes Review of Systems Const All systems reviewed & are unremarkable except as noted in HPI and below ENT Reports Normal hearing present Neuro Reports Normal hearing present, Denies Abnormal speech present, Denies confusion and Denies Sensory deficit (Neuro) Psych Denies confusion Physical Exam Vital Signs: Last Vital Signs Pulse 69 11/30/24 08:59 Resp 16 11/30/24 08:59 BP 116/58 L 11/30/24 08:59 Pulse Ox 100 11/30/24 08:59 Oxygen Delivery Method Room Air 11/30/24 08:59 BMI result Body Mass Index 32.2 Const General: no acute distress; No confusion Orientation/consciousness: patient oriented x3 and No confusion Eyes General: appearance normal, both eyes and all related structures Pupils: Equal, round and reactive pupils present EOM: EOMs intact bilaterally Neck Neck: Yes full ROM Chest Chest palpation & inspection: normal inspection of the chest Resp Effort & Inspection: normal respiratory effort, able to speak in complete sentences, normal respiratory pattern, no audible wheezes and no cough Cardio Jugular venous distension: no JVD GI Inspection: Yes normal to inspection Back/Spine/Pelvis Other: There is tenderness on palpation in the projection of the right sacroiliac joint. There is tenderness on palpation in the right trochanter area. Kenyon test is positive on the right, [employer] test is positive on the right, Gaenslen test is positive on the right, Stinchfield test is positive on the right, pelvic compression test is positive on the right. Neuro General: patient oriented x3, gait normal and No confusion Cranial nerves: Yes CN's II-XII intact bilaterally, Yes Equal, round and reactive pupils present, Yes Normal hearing present and Yes Ability to bilaterally elevate shoulders present Speech: No Abnormal speech present Gait exam (Neuro): Normal gait present Motor exam (neuro): 5/5 motor strength present throughout Sensory Exam: No Sensory deficit (Neuro) Extrem General: No pedal edema Psych Speech and movement: Normal speech and movement present Affect: normal affect Attitude: cooperative Thought process: Normal thought process present Thought content: Normal thought content present Insight: Good insight present (Psych) Judgement: Good judgement present (Psych) Results Reviewed Results Reviewed: Ordering Physician: Eleanor Munroe Date of Service: 09/02/24 Procedure(s): MR lumbar spine wo con Accession Number(s): [id number] cc: Eleanor Munroe; Jagdish Bucio [facility]~ CLINICAL HISTORY: M54.50 - Low back pain, unspecified --- Additional Notes or Special Instructions: evaluate for right L5-S1 disc herniation or nerve impingement MR lumbar spine without gadolinium Comparison: None Findings: Normal alignment. No acute fracture or pathologic bone lesion. Cauda equina and conus medullaris within normal limits. Paraspinous musculature intact. Retroperitoneal structures visualized are unremarkable. Individual levels: T11-L4: No central canal stenosis or neural foraminal narrowing. L4-L5: Small posterior disc protrusion with moderate left neural foraminal narrowing. No central canal stenosis. L5-S1: No significant central canal stenosis or neural foraminal narrowing. IMPRESSION: Mild degenerative changes at L4-L5 as detailed. This document has been electronically signed by: Yohannes Moyer MD on 09/05/2024 12:36:13 Assessment & Plan Assessment & Plan (1) Sacroiliitis: Code(s): M46.1 - Sacroiliitis, not elsewhere classified Category: Medical (2) Chronic right sacroiliac joint pain: Code(s): M53.3 - Sacrococcygeal disorders, not elsewhere classified; G89.29 - Other chronic pain Category: Medical (3) Chronic pain syndrome: Code(s): G89.4 - Chronic pain syndrome Category: Medical Plan I personally evaluated MRI of this patient and I do not think any of the changes described in this MRI would result in generation of the pain described above. Sacroiliac joint belt is given to the patient. I recommended patient to continue wearing sacroiliac joint belt as much as possible especially during the day when she is working. I also recommended the patient to continue home exercise program and take NSAIDs as well as topical medications although they helped her very little. I will schedule her for therapeutic right sacroiliac joint injection. I will see this patient in my office 1 month after the therapeutic sacroiliac joint injection. Patient Instructions: I here by testify that I spent 45 minutes in conversation with this patient as well as evaluating her prior records, evaluating prior diagnostic studies, planning her care and organizing this note. Coding Level of Care Code New Pt Level 4 (73971) Diagnoses Sacroiliitis M46.1 Chronic right sacroiliac joint pain M53.3; G89.29 Chronic pain syndrome G89.4
[2024-11-30 08:59] VITALS: BP 116/58; PULSE 69; RESP 16; O2SAT 100; BMI 32.2
== END 2024-11-30 09:23 | disposition home or self-care (01) ==
LOC: HO.PMC 08:56
PROVIDERS: PCP Family Medicine; Visit Provider Anesthesiology
DX: M46.1 Sacroiliitis, not elsewhere classified (principal); M53.3 Sacrococcygeal disorders, not elsewhere classified; G89.29 Other chronic pain; G89.4 Chronic pain syndrome
CPT/HCPCS: 99204

== ENCOUNTER 2025-01-16 06:23 | Outpatient (REF) | payer OTHER, SELFPAY ==
--- NOTE | ~2025-01-16 | FL_ITS ---
EXAMINATION: FLUOROSCOPY GUIDANCE FOR NEEDLE PLACEMENT CLINICAL INFORMATION: M46.1 - Sacroiliitis, not elsewhere classified COMPARISON: Previous exam November 2024 TECHNIQUE: Fluoroscopy guidance provided for pain management procedure. 2 submitted images. FINDINGS: Images demonstrate needle placement and contrast injection over the right sacroiliac joint. FLUOROSCOPY TIME: 7 seconds DOSE AREA PRODUCT: 286 mGy-cm2 FL/FL guidance in treatment room IMPRESSION: Fluoroscopy guidance for pain management procedure. Electronically signed by: Ingrid Deleon MD 01/16/2025 02:37 PM SCOT
== END 2025-01-16 06:24 | disposition home or self-care (01) ==
LOC: CF 06:23
PROVIDERS: Visit Provider Anesthesiology
DX: M46.1 Sacroiliitis, not elsewhere classified (principal); M53.3 Sacrococcygeal disorders, not elsewhere classified; G89.29 Other chronic pain
CPT/HCPCS: J2795; J3301; Q9967

== ENCOUNTER 2025-01-16 13:46 | Outpatient (AMB) | payer OTHER, SELFPAY ==
[2025-01-16 13:47] VITALS: BP 109/61; PULSE 76; RESP 16; O2SAT 100; BMI 32.2
--- NOTE | 2025-01-16 13:47 | MHC.OFFVIS ---
Vital Signs 01/16/25 13:47 01/16/25 13:52 Height 5 ft 9 in Weight 218 lb BMI 32.2 BP 109/61 120/65 Blood Pressure Location Lt brachial Lt brachial Position Sitting Sitting Respiration 16 16 Pulse 76 74 Pulse Source Pulse Oximeter Pulse Oximeter Pulse Oximetry (%) 100 99 Oxygen Delivery Method Room Air Room Air Intake Visit Reasons: Right Therapeutic SIJ Injection Allergies Penicillins Allergy (Verified 11/30/24 09:01) Rash PFSH Medical History (Updated 11/30/24 @ 09:31 by Darius Hernández MD) Cyst of kidney, acquired Hx of migraine headaches Back disorder Arthritis Sinusitis FH: cholecystectomy Allergies Heartburn Surgical History Hx laparoscopic cholecystectomy (01/13/24) Hx of esophagogastroduodenoscopy Family History (Updated 08/01/24 @ 08:49 by ALE Sutton) Father Alcohol abuse Mother High blood pressure High cholesterol Social History Household Members: Family Housing: House Do you presently have visiting nurse or other home services: No Alcohol intake: current Alcohol intake frequency: holidays/special occasions only Patient Tobacco Use Status: Current everyday Tobacco user Tobacco use type: Cigarette Cigarettes Per Day: 10 e-Cigarette/Vaping Use: Never Used Second Hand Smoke Exposure: No service: No Current occupational status: employed 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 Current occupational exposures/hazards: Yes Cognitive needs: No Hearing needs: No Vision needs: Yes Physical Exam Vital Signs: Last Vital Signs Pulse 74 01/16/25 13:52 Resp 16 01/16/25 13:52 BP 120/65 01/16/25 13:52 Pulse Ox 99 01/16/25 13:52 Oxygen Delivery Method Room Air 01/16/25 13:52 BMI result Body Mass Index 32.2 Assessment & Plan Assessment & Plan (1) Chronic right sacroiliac joint pain: Code(s): M53.3 - Sacrococcygeal disorders, not elsewhere classified; G89.29 - Other chronic pain Category: Medical (2) Sacroiliitis: Code(s): M46.1 - Sacroiliitis, not elsewhere classified Category: Medical Plan right therapeutic sacroiliac joint injection. the risks, benefits and alternatives were discussed with the patient and informed consent was obtained, patient was placed in the prone position and padded to foster comfort. Time out was performed delineating correct site and side of the procedure , name and of the patient, patient participated in time out procedure. The lower back and upper buttocks of the patient were prepped with ChloraPrep and draped with sterile self adhesive utility towels. C-arm was brought over the operating field and picture of the right SI joint was demonstrated on the screen. Tilting C-arm contralateral to the left the posterior silhouette of the sacroiliac joint was superimposed on anterior silhouette of the sacroiliac joint. The point slightly medial to the sacroiliac joint silhouette was injected with lidocaine 2%, forming skin wheal. After that 22 gauge 3-1/2 inch spinal needle was inserted through the skin wheal and advanced to were the sacroiliac joint in tunnel vision fashion. When the needle entered the sacroiliac joint capsule injection of the contrast was performed delineating intra-articular and minimally periarticular spread of the contrast. After that injection of the treatment solution of ropivacaine 0.5% 5 cc mixed with kenalog 40 mg into the joint was performed. Upon completion of the injection needle was withdrawn sterile Band-Aid was applied. The patient tolerated the procedure well. Orders: Orders FL guidance in treatment room 01/16/25 M46.1 - Sacroiliitis, not elsewhere classified Coding Level of Care Code Procedure Only Diagnoses Chronic right sacroiliac joint pain M53.3; G89.29 Sacroiliitis M46.1
[2025-01-16 13:52] VITALS: BP 120/65; PULSE 74; RESP 16; O2SAT 99
== END 2025-01-16 14:05 | disposition home or self-care (01) ==
LOC: HO.PMCPRC 13:46
PROVIDERS: PCP Family Medicine; Visit Provider Anesthesiology
DX: M53.3 Sacrococcygeal disorders, not elsewhere classified (principal); M46.1 Sacroiliitis, not elsewhere classified
CPT/HCPCS: 27096

== ENCOUNTER 2025-02-14 08:56 | Outpatient (AMB) | payer OTHER, SELFPAY ==
--- NOTE | 2025-02-14 08:58 | A.OFFVIS_ITS ---
Vital Signs 02/14/25 08:59 Height 5 ft 9 in Weight 219 lb BMI 32.3 BP 114/59 L Blood Pressure Location Rt brachial Position Sitting Respiration 16 Pulse 64 Pulse Source Pulse Oximeter Pulse Oximetry (%) 98 Oxygen Delivery Method Room Air Intake Visit Reasons: S/P Right Therapeutic SIJ Injection Compliance Program Manager Required: No Accompanied by: Self / Same As Patient Allergies Penicillins Allergy (Verified 02/14/25 09:03) Rash HPI Comments Details: Lhu is back in my office after therapeutic sacroiliac joint injection. She reports 100% pain improvement for the past 4 months since injection. She reports no pain in the area. Risks of steroids were discussed. Needs for follow-up also discussed. The patient will give us a call when the pain will come back. If her pain relief lasts more than 6 months I do not mind to repeat the injection. If it is less than 6 months then some other modalities needs to be considered for the patient. 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 She reports the pain is more to the right as well. She reported that this pain started 3 years ago. She went for evaluation to Dr. Munroe and sacroiliac joint pathology was suggested. She was referred to [facility] for sacroiliac joint injection diagnostic. She is here in my office to discuss results of the sacroiliac joint injection. She had MRI of the lumbar spine results of which dictated as below. She did not have any she had 12 sessions of physical therapy with no effect she continues to do home exercise program to improve muscle function. She received from [facility] diagnostic right sacroiliac joint injection. No past medical history, past surgical history: Gallbladder 12/2023, she admits smoking 6-7 cigarettes a day, I recommended her to stop as soon as possible, she drinks 2 glasses of wine twice a month. She drinks 2 coffees a day she denies recreational drugs. Results of the diagnostic sacroiliac joint injection: 24 hours of 90% pain relief with the injection. [facility] Medical History (Updated 11/30/24 @ 09:31 by Darius Hernández MD) Cyst of kidney, acquired Hx of migraine headaches Back disorder Arthritis Sinusitis FH: cholecystectomy Allergies Heartburn Surgical History Hx laparoscopic cholecystectomy (01/13/24) Hx of esophagogastroduodenoscopy Family History (Updated 08/01/24 @ 08:49 by ALE Sutton) Father Alcohol abuse Mother High blood pressure High cholesterol Social History Household Members: Family Housing: House Do you presently have visiting nurse or other home services: No Alcohol intake: current Alcohol intake frequency: holidays/special occasions only Patient Tobacco Use Status: Current everyday Tobacco user Tobacco use type: Cigarette Cigarettes Per Day: 10 e-Cigarette/Vaping Use: Never Used Second Hand Smoke Exposure: No service: No Current occupational status: employed 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 Current occupational exposures/hazards: Yes Cognitive needs: No Hearing needs: No Vision needs: Yes Review of Systems Const All systems reviewed & are unremarkable except as noted in HPI and below ENT Reports Normal hearing present Neuro Reports Normal hearing present, Denies Abnormal speech present, Denies confusion and Denies Sensory deficit (Neuro) Psych Denies confusion Physical Exam Const General: no acute distress; No confusion Orientation/consciousness: patient oriented x3 and No confusion Eyes General: appearance normal, both eyes and all related structures Pupils: Equal, round and reactive pupils present EOM: EOMs intact bilaterally Neck Neck: Yes full ROM Chest Chest palpation & inspection: normal inspection of the chest Resp Effort & Inspection: normal respiratory effort, able to speak in complete sentences, normal respiratory pattern, no audible wheezes and no cough Cardio Jugular venous distension: no JVD GI Inspection: Yes normal to inspection Back/Spine/Pelvis Other: There is tenderness on palpation in the projection of the right sacroiliac joint. There is tenderness on palpation in the right trochanter area. Kenyon test is positive on the right, [place] test is positive on the right, Gaenslen test is positive on the right, Stinchfield test is positive on the right, pelvic compression test is positive on the right. Neuro General: patient oriented x3, gait normal and No confusion Cranial nerves: Yes CN's II-XII intact bilaterally, Yes Equal, round and reactive pupils present, Yes Normal hearing present and Yes Ability to bilaterally elevate shoulders present Speech: No Abnormal speech present Gait exam (Neuro): Normal gait present Motor exam (neuro): 5 motor strength present throughout Sensory Exam: No Sensory deficit (Neuro) Extrem General: No pedal edema Psych Speech and movement: Normal speech and movement present Affect: normal affect Attitude: cooperative Thought process: Normal thought process present Thought content: Normal thought content present Insight: Good insight present (Psych) Judgement: Good judgement present (Psych) Results Reviewed Results Reviewed: Ordering Physician: Eleanor Munroe Date of Service: 09/02/24 Procedure(s): MR lumbar spine wo con Accession Number(s): [id number] cc: Eleanor Munroe; Jagdish Bucio [employer]~ CLINICAL HISTORY: M54.50 - Low back pain, unspecified --- Additional Notes or Special Instructions: evaluate for right L5-S1 disc herniation or nerve impingement MR lumbar spine without gadolinium Comparison: None Findings: Normal alignment. No acute fracture or pathologic bone lesion. Cauda equina and conus medullaris within normal limits. Paraspinous musculature intact. Retroperitoneal structures visualized are unremarkable. Individual levels: T11-L4: No central canal stenosis or neural foraminal narrowing. L4-L5: Small posterior disc protrusion with moderate left neural foraminal narrowing. No central canal stenosis. L5-S1: No significant central canal stenosis or neural foraminal narrowing. IMPRESSION: Mild degenerative changes at L4-L5 as detailed. This document has been electronically signed by: Yohannes Moyer MD on 09/05/2024 12:36:13 Assessment & Plan Assessment & Plan (1) Sacroiliitis: Code(s): M46.1 - Sacroiliitis, not elsewhere classified Category: Medical (2) Chronic right sacroiliac joint pain: Code(s): M53.3 - Sacrococcygeal disorders, not elsewhere classified; G89.29 - Other chronic pain Category: Medical (3) Chronic pain syndrome: Code(s): G89.4 - Chronic pain syndrome Category: Medical Plan Diagnostic sacroiliac joint injection 90% pain relief for 24 hours. Therapeutic sacroiliac joint injection so far 100% pain relief for the past 4 weeks. (02/14/2025) Patient is provided sacroiliac joint belt and reports minimal improvement with the device. Results of the MRI of the lumbar spine she is as above. Discussion of the continuation of the sacroiliac joint therapeutic injections versus different modalities was held today. Coding Level of Care Code Est Pt Level 3 (39347) Diagnoses Sacroiliitis M46.1 Chronic right sacroiliac joint pain M53.3; G89.29 Chronic pain syndrome G89.4
[2025-02-14 08:59] VITALS: BP 114/59; PULSE 64; RESP 16; O2SAT 98; BMI 32.3
== END 2025-02-14 09:07 | disposition home or self-care (01) ==
LOC: HO.PMC 08:57
PROVIDERS: PCP Family Medicine; Visit Provider Anesthesiology
DX: M46.1 Sacroiliitis, not elsewhere classified (principal); M53.3 Sacrococcygeal disorders, not elsewhere classified; G89.29 Other chronic pain; G89.4 Chronic pain syndrome
CPT/HCPCS: 99213